=== PATIENT | male | born 1990 | race Caucasian/White ===

== ENCOUNTER 2016-06-12 07:22 | Inpatient (IN) | payer OTHER ==
[2016-06-12] VITALS (16 sets, daily range): BP systolic 118–166; BP diastolic 54–99; PULSE 68–130; RESP 11–42; TEMP 98–99.3; O2SAT 95–100
[~2016-06-12] VITALS: Ht 185.4 cm; Wt 100.1 kg
[2016-06-12] MEDS ORDERED: methylPREDNISolone SOD SUCC 125 MG/2 ML VIAL IVP ONE (07:30)
[2016-06-12] MEDS ORDERED: SODIUM CHLORIDE 0.9% FLUSH 5 ML FLUSH IVF PRN ×2 (07:30→09:00)
[2016-06-12] MEDS ORDERED: ALBU0.63 NEB (07:32)
[2016-06-12] MEDS ORDERED: VENTAER INH (07:32)
--- NOTE | 2016-06-12 07:33 | PD ---
HPI Chief Complaint: Respiratory Distress Time Seen by Provider: 07:25 Travel History International Travel<30 days: No Contact w/Intl Traveler<30days: No Traveled to known affect area: No History of Present Illness HPI The patient is a 25-year-old male who presents emergency department for shortness of breath. The patient's fianc provides most of the history as the patient is experiencing extreme shortness of breath upon arrival. The patient has a history of asthma with 3 days of increasing shortness of breath and wheezing. The patient has had a dry nonproductive cough, some anterior chest tightness, and wheezing. The patient denies any fever, chills, or sweats. The patient does have a history of significant asthma with one previous intubation and to previous episodes where he was placed on BiPAP. The patient's last hospitalization was approximately 3 months ago in [place]. The patient does smoke socially. The patient's symptoms are moderate, exacerbated by history of asthma, and not alleviated with nebulizers at home. However, the patient's nebulizer machine is not been working at home according to the [facility]. [facility] Past Medical History Narrative Medical Asthma Respiratory: Yes Past Surgical History Surgical History: No Previous Surgery Social History Alcohol Use: No Tobacco Use: Yes (socially) Substance Use: No Allergies-Medications (Allergen,Severity, Reaction): Coded Allergies: No Known Allergies (Unverified , 07/21/15) Reported Meds & Prescriptions Reported Meds & Active Scripts Active Reported Albuterol Neb (Albuterol Sulfate) 0.63 Mg/3 Ml Neb 0.63 Mg NEB Q4HR NEB PRN Ventolin Hfa 18 GM Inh (Albuterol Sulfate) 90 Mcg/Act Aer 2 Puff INH Q4-6H PRN Review of Systems ROS Limitations: Clinical Condition Except as stated in HPI: all other systems reviewed are Neg General / Constitutional: No: Fever, Chills HENT: No: Lightheadedness Cardiovascular: Positive: Chest Pain or Discomfort (tightness) Respiratory: Positive: Cough, Shortness of Breath Gastrointestinal: No: Nausea, Vomiting, Abdominal Pain Musculoskeletal: No: Edema Physical Exam Narrative GENERAL: Awake, alert, 25-year-old male who appears in moderate respiratory distress. SKIN: Warm and dry. HEAD: Atraumatic. Normocephalic. EYES: No injection or drainage. ENT: No nasal bleeding or discharge. Mucous membranes pink and moist. NECK: Trachea midline. No JVD. CARDIOVASCULAR: Regular, tachycardic with a heart rate of 120. RESPIRATORY: Supraclavicular and intercostal retractions. Mild tachypnea. Diminished breath sounds with prolonged expiratory phase. GASTROINTESTINAL: Abdomen soft, non-tender, nondistended. No rebound tenderness. MUSCULOSKELETAL: No obvious deformities. No clubbing. No cyanosis. No edema. NEUROLOGICAL: Awake and alert. No obvious cranial nerve deficits. Motor grossly within normal limits. Normal speech. PSYCHIATRIC: Appropriate mood and affect; insight and judgment normal. Data Data Last Documented VS Vital Signs Date Time Temp Pulse Resp B/P Pulse Ox O2 Delivery O2 Flow Rate FiO2 06/12/16 08:15 99 40 06/12/16 08:15 102 40 132/94 BiPAP 06/12/16 07:34 2.00 06/12/16 07:27 98.2 Orders Basic Metabolic Panel (Bmp) (06/12/16 07:29) Complete Blood Count With Diff (06/12/16 07:29) Chest, Single Ap (06/12/16 07:29) Ecg Monitoring (06/12/16 07:29) Iv Access Insert/Monitor (06/12/16 07:29) Oximetry (06/12/16 07:29) Oxygen Administration (06/12/16 07:29) Methylprednisolone So Succ Inj (Solumedr (06/12/16 07:30) Albuterol-Ipratropium Neb (Duoneb Neb) (06/12/16 07:30) Sodium Chloride 0.9% Flush (Ns Flush) (06/12/16 07:30) Morphine Inj (Morphine Inj) (06/12/16 08:30) Ondansetron Inj (Zofran Inj) (06/12/16 08:30) Sodium Chlor 0.9% 1000 Ml Inj (Ns 1000 M (06/12/16 08:30) Albuterol Neb Continuous Pack (Albuterol (06/12/16 08:30) Arterial Blood Gas (Abg) (06/12/16 ) Albuterol-Ipratropium Neb (Duoneb Neb) (06/12/16 11:00) Albuterol-Ipratropium Neb (Duoneb Neb) (06/12/16 09:00) Methylprednisolone So Succ Inj (Solumedr (06/12/16 12:00) Budesonide Neb (Pulmicort Respule Neb) (06/12/16 09:00) Admit To Inpatient (06/12/16 ) Code Status (06/12/16 08:49) Vital Signs (Adult) JUANA.Q1H (06/12/16 08:49) Activity Bed Rest (06/12/16 08:49) Monotype Keyboard Operator / Telemetry JUANA.Q8H (06/12/16 08:49) Intake + Output JUANA.Q8H (06/12/16 08:49) Diet Npo (06/12/16 Breakfast) Sodium Chlor 0.9% 1000 Ml Inj (Ns 1000 M (06/12/16 08:49) Sodium Chloride 0.9% Flush (Ns Flush) (06/12/16 09:00) Sodium Chloride 0.9% Flush (Ns Flush) (06/12/16 09:00) Morphine Inj (Morphine Inj) (06/12/16 09:00) Chlorhexidine 0.12% Liq (Peridex 0.12% L (06/12/16 20:00) Pantoprazole Inj (Protonix Inj) (06/12/16 09:00) Complete Blood Count With Diff (06/13/16 06:00) Comprehensive Metabolic Panel (06/13/16 06:00) Chest, Single Ap (06/13/16 06:00) Resp Pulse Oximetry (06/12/16 ) Resp Bipap / Cpap Non Invas Vt (06/12/16 ) Consult Cm-Day 5 Ltac Eval (06/12/16 ) Enoxaparin Inj (Lovenox Inj) (06/12/16 09:00) Scd Bilateral/Knee High JUANA.BID (06/12/16 08:49) Leon Bilateral/Knee High JUANA.QSHIFT (06/12/16 08:49) ^ Initiate Protocol (06/12/16 08:49) ^ Instruction (06/12/16 08:49) [facility] Information (06/12/16 09:00) Chlorhexidine 2% Cloth (Chlorhexidine 2% (06/13/16 04:00) Chlorhexidine 2% Cloth (Chlorhexidine 2% (06/12/16 09:00) Mrsa Pcr Surveillance (06/12/16 08:49) Inpatient Certification (06/12/16 ) Admit Order (Ed Use Only) (06/12/16 09:01) Magnesium (Mg) (06/12/16 07:30) Phosphorus (Po4) (06/12/16 07:30) Labs Laboratory Tests Test 06/12/16 06/12/16 07:30 08:40 White Blood Count 7.2 TH/MM3 Red Blood Count 5.36 MIL/MM3 Hemoglobin 16.0 GM/DL Hematocrit 47.5 % Mean Corpuscular Volume 88.6 FL Mean Corpuscular Hemoglobin 30.0 PG Mean Corpuscular Hemoglobin 33.8 % Concent Red Cell Distribution Width 13.2 % Platelet Count 198 TH/MM3 Mean Platelet Volume 10.3 FL Neutrophils (%) (Auto) 49.2 % Lymphocytes (%) (Auto) 31.5 % Monocytes (%) (Auto) 14.9 % Eosinophils (%) (Auto) 4.0 % Basophils (%) (Auto) 0.4 % Neutrophils # (Auto) 3.6 TH/MM3 Lymphocytes # (Auto) 2.3 TH/MM3 Monocytes # (Auto) 1.1 TH/MM3 Eosinophils # (Auto) 0.3 TH/MM3 Basophils # (Auto) 0.0 TH/MM3 CBC Comment DIFF FINAL Differential Comment Sodium Level 140 MEQ/L Potassium Level 4.2 MEQ/L Chloride Level 105 MEQ/L Carbon Dioxide Level 26.6 MEQ/L Anion Gap 8 MEQ/L Blood Urea Nitrogen 10 MG/DL Creatinine 1.19 MG/DL Estimat Glomerular Filtration 76 ML/MIN Rate Random Glucose 87 MG/DL Calcium Level 9.3 MG/DL Phosphorus Level 2.3 MG/DL Magnesium Level 2.1 MG/DL Blood Gas Puncture Site RT RADIAL Blood Gas Patient Temperature 98.6 Blood Gas HCO3 24 mmol/L Blood Gas Base Excess -0.7 mmol/L Blood Gas Oxygen Saturation 96 % Arterial Blood pH 7.39 Arterial Blood Partial 40 mmHg Pressure CO2 Arterial Blood Partial 190 mmHG Pressure O2 Arterial Blood Oxygen Content 20.3 Vol % Arterial Blood 1.8 % Carboxyhemoglobin Arterial Blood Methemoglobin 2.0 % Blood Gas Hemoglobin 14.8 G/DL Oxygen Delivery Device BiPAP Blood Gas Ventilator Setting [id number] Blood Gas Inspired Oxygen 40 % MDM Medical Decision Making Medical Screen Exam Complete: Yes Emergency Medical Condition: Yes Medical Record Reviewed: Yes Interpretation(s) Laboratory Tests Test 06/12/16 07:30 White Blood Count 7.2 TH/MM3 Red Blood Count 5.36 MIL/MM3 Hemoglobin 16.0 GM/DL Hematocrit 47.5 % Mean Corpuscular Volume 88.6 FL Mean Corpuscular Hemoglobin 30.0 PG Mean Corpuscular Hemoglobin 33.8 % Concent Red Cell Distribution Width 13.2 % Platelet Count 198 TH/MM3 Mean Platelet Volume 10.3 FL Neutrophils (%) (Auto) 49.2 % Lymphocytes (%) (Auto) 31.5 % Monocytes (%) (Auto) 14.9 % Eosinophils (%) (Auto) 4.0 % Basophils (%) (Auto) 0.4 % Neutrophils # (Auto) 3.6 TH/MM3 Lymphocytes # (Auto) 2.3 TH/MM3 Monocytes # (Auto) 1.1 TH/MM3 Eosinophils # (Auto) 0.3 TH/MM3 Basophils # (Auto) 0.0 TH/MM3 CBC Comment DIFF FINAL Differential Comment Sodium Level 140 MEQ/L Potassium Level 4.2 MEQ/L Chloride Level 105 MEQ/L Carbon Dioxide Level 26.6 MEQ/L Anion Gap 8 MEQ/L Blood Urea Nitrogen 10 MG/DL Creatinine 1.19 MG/DL Estimat Glomerular Filtration 76 ML/MIN Rate Random Glucose 87 MG/DL Calcium Level 9.3 MG/DL Last Impressions Chest X-Ray 06/12/16 0729 Signed Impressions: Service Date/Time: May 08:01 - CONCLUSION: No acute cardiopulmonary abnormality is identified. Alton Mon MD Differential Diagnosis Differential diagnosis includes status asthmaticus, asthma exacerbation, pneumothorax, cardiomyopathy, pulmonary embolism, flash pulmonary edema, pleural effusion. Narrative Course IV was established, labs were drawn and sent, and the patient was placed on cardiac telemetry monitoring and continuous pulse oximetry monitoring. The patient was administered Solu-Medrol 125 mg intravenously and 3 duo nebs. Chest x-ray was obtained. The patient initially declined BiPAP. The patient was administered 3 duo nebs, however, continue to have significant respiratory distress with visible retractions and tachypnea with a respiratory rate of 40. Therefore, the patient was placed on BiPAP. The patient is high risk as he has been on BiPAP twice in the past with one previous intubation and continues to have significant symptoms after 3 duo nebs. Therefore, the patient will be admitted to the intensive care unit to evaluate improvement or decline in respiratory status on BiPAP. The on-call field laborer was paged at 8:12 AM. I discussed the patient with the field laborer, Dr. Dang, who requests that ABG. Therefore, stat ABG was ordered. Critical Care Narrative Aggregate critical care time was 35 minutes. Time to perform other separately billable procedures was not included in the critical care time. My time did not include minutes spent treating any other patients simultaneously or on activities that did not directly contribute to the patient's treatment. The services I provided to this patient were to treat and/or prevent clinically significant deterioration that could result in: Anoxia, hypoxia, respiratory arrest. I provided critical care services requiring my management, as noted below: Chart data review, documentation time, medication orders and management, vital sign assessments/reviewing monitor data, ordering and reviewing lab tests, ordering and interpreting/reviewing x-rays and diagnostic studies, care of the patient and discussion of the patient with the admitting physicians. Physician Communication Physician Communication The on-call field laborer was paged for admission. I discussed the patient Dr. Dang who agrees with admission. Diagnosis Primary Impression: Status asthmaticus Qualified Code: J45.902 - Asthma with status asthmaticus, unspecified asthma severity Admitting Information Admitting Physician Requests: Admit Condition: Stable Isaiah Stearns MD Jun 12, 2016 07:33
[2016-06-12] MEDS: RESP: ALBUTEROL 2.5 MG/IPRATROPIUM 0.5 MG NEB (SCH) INH ×2 (07:35→07:36)
[2016-06-12 07:49] LABS: AUTOMATED NEUTROPHIL # 3.6 TH/MM3 (1.8-7.7); BASOPHIL % 0.4 % (0.0-2.0); EOSINOPHIL # 0.3 TH/MM3 (0-0.4); HEMATOCRIT 47.5 % (39.0-51.0); HEMO FLAGS DIFF FINAL; LYMPH % 31.5 % (9.0-44.0); LYMPHOCYTE # 2.3 TH/MM3 (1.0-4.8); MEAN CELL VOLUME 88.6 FL (80.0-100.0); MEAN CORPUSCULAR HGB CONC 33.8 % (32.0-36.0); MONO % 14.9 % (0.0-8.0); NEUT % 49.2 % (16.0-70.0); PLATELET COUNT 198 TH/MM3 (150-450); RED BLOOD COUNT 5.36 MIL/MM3 (4.50-5.90); RED CELL DISTRIBUTION WIDTH 13.2 % (11.6-17.2); WHITE BLOOD COUNT 7.2 TH/MM3 (4.0-11.0)
[2016-06-12 08:05] LABS: BICARBONATE 26.6 MEQ/L (21.0-32.0); POTASSIUM 4.2 MEQ/L (3.5-5.1)
--- NOTE | 2016-06-12 08:24 | RADRPT ---
EXAM DATE/TIME: 06/12/2016 08:01 [facility] COMPARISON: No previous studies available for comparison. INDICATIONS : Shortness of breath. MEDICAL HISTORY : Asthma SURGICAL HISTORY : None. ENCOUNTER: Initial ACUITY: 2 days PAIN SCORE: 0/10 LOCATION: Bilateral chest FINDINGS: Portable AP view of the chest demonstrates a normal-sized cardiac silhouette. No effusion, consolidat ion, or pneumothorax is visualized. The bones and soft tissues demonstrate no acute abnormality. Ther e is mild thoracolumbar scoliosis. CONCLUSION: No acute cardiopulmonary abnormality is identified. Alton Mon MD on June 12, 2016 at 8:22 Board Certified Radiologist. This report was verified electronically.
[2016-06-12] MEDS ORDERED: ONDANSETRON HCL 4 MG/2 ML VIAL IV PUSH ONE (08:30)
[2016-06-12] MEDS ORDERED: SODIUM CHLOR 0.9% 1000 ML INJ 1,000 ML IV ONE (08:30)
[2016-06-12] MEDS ORDERED: MORPHINE SULFATE 4 MG/ML INJ IV PUSH ONE (08:30)
[2016-06-12 08:53] LABS: BLOOD GAS BASE EXCESS -0.7 mmol/L (-2-2); BLOOD GAS CARBOXYHEMOGLOBIN 1.8 % (0-4); BLOOD GAS HCO3 24 mmol/L (22-26); BLOOD GAS O2 HGB SATURATION 96 % (90-100); BLOOD GAS OXYGEN CONTENT 20.3 Vol % (12.0-20.0); BLOOD GAS PCO2 40 mmHg (38-42); BLOOD GAS PO2 190 mmHG (61-120); BLOOD GAS TOTAL HGB 14.8 G/DL (12.0-16.0); CRITICAL VALUE NO; OXYGEN DEVICE BiPAP; TEMP CORR TO 98.6
[2016-06-12 08:54] LABS: DRAW SITE RT RADIAL; FIO2 40 %; NUMBER OF ARTERIAL PUNCTURES 1; STAT YES; ULNAR PULSE PRESENT; VENT SETTINGS IPAP10EPAP5
[2016-06-12] MEDS ORDERED: RESP: ALBUTEROL 2.5 MG/IPRATROPIUM 0.5 MG NEB (PRN) NEB (09:00)
[2016-06-12] MEDS ORDERED: CHLORHEXIDINE GLUCONATE 2 % 1 PACK (2 CLOTHS) TOP PRN (09:00)
[2016-06-12] MEDS: ENOXAPARIN SODIUM 40 MG/0.4 ML SYRINGE SQ SCH (09:00)
[2016-06-12] MEDS: SODIUM CHLORIDE 0.9% FLUSH 5 ML FLUSH IVF SCH ×2 (09:00→20:02)
[2016-06-12] MEDS: RESP: BUDESONIDE 0.5 MG/2 ML NEB NEB SCH ×2 (09:00→19:21)
[2016-06-12] MEDS ORDERED: MORPHINE SULFATE 4 MG/ML INJ IV PRN (09:00)
[2016-06-12] MEDS ORDERED: MISCELLANEOUS NURSING INFORMATION XX SCH (09:00)
--- NOTE | 2016-06-12 09:17 | HHI.HP ---
HPI Service Critical Care Medicine Primary Care Physician No Primary Care Physician Admission Diagnosis status asthmaticus Diagnosis: (1) Status asthmaticus Diagnosis: Principal (2) Acute respiratory failure Diagnosis: Principal (3) Poorly controlled persistent asthma Diagnosis: Secondary (4) Noncompliance Diagnosis: Secondary Chief Complaint: Severe shortness of breath Status asthmaticus Travel History International Travel<30 Days: No Contact w/Intl Traveler <30 Da: No Traveled to Known Affected Are: No Sepsis Criteria SIRS Criteria (2 or more): Heart rate over 90, RR > 20 or PaCO2 < 32 Criteria Outcome: Meets SIRS criteria History of Present Illness The patient is a 25-year-old male with poorly controlled asthma who presented to emergency department with for shortness of breath, tachypnea, essentially in status asthmaticus. Patient was unable to give history and patient's fianc provided most of the history. He is having 3 days of increasing shortness of breath and wheezing, with dry nonproductive cough, some anterior chest tightness , and wheezing. He had one previous intubation in [place] when he was 16, had been on BiPAP atleast twice, most recently 6 months ago. He is noncompliant to his inhaled steroids and bronchodilators. Per ER history he does smoke socially but he denied this to me. His nebulizer machine is not been working at home. The patient was administered Solu-Medrol 125 mg intravenously and DuoNebx3. Chest x-ray was negative. Patient continued to have significant respiratory distress with visible accessory muscle use and a respiratory rate of 40 and was placed on BiPAP. ABG showed normal pH PCO2 40 PO2 190. I evaluated the patient in ED. he remains on BiPAP breathing 30-35, but feels that he is slightly improved now. Complaints of pleuritic chest pain of R sternal margin Review of Systems ROS Limitations: Clinical Condition (On BiPAP) Past Family Social History Allergies: Coded Allergies: No Known Allergies (Unverified , 07/21/15) Past Medical History Severe asthma with noncompliance to treatment Past Surgical History Appendectomy testicular torsion Reported Medications Albuterol Neb (Albuterol Sulfate) 0.63 Mg/3 Ml Neb 0.63 Mg NEB Q4HR NEB PRN Ventolin Hfa 18 GM Inh (Albuterol Sulfate) 90 Mcg/Act Aer 2 Puff INH Q4-6H PRN Active Ordered Medications Reviewed Family History Reviewed Social History No alcohol, tobacco or drug use Physical Exam Vital Signs Vital Signs Date Time Temp Pulse Resp B/P Pulse Ox O2 Delivery O2 Flow Rate FiO2 06/12/16 08:15 99 40 06/12/16 08:15 102 40 132/94 97 BiPAP 40 06/12/16 08:11 97 BiPAP 40 06/12/16 07:34 99 Nasal Cannula 2.00 06/12/16 07:31 99 Nasal Cannula 2 06/12/16 07:31 99 Nasal Cannula 2 06/12/16 07:29 42 99 Nasal Cannula 2 06/12/16 07:27 98.2 130 42 166/99 100 Physical Exam GENERAL: 25-year-old male who appears in moderate respiratory distress on BiPAP SKIN: Warm and dry. HEAD: Atraumatic. Normocephalic. EYES: No injection or drainage. ENT: No nasal bleeding or discharge. BiPAP mask limits exam NECK: Trachea midline. No JVD. CARDIOVASCULAR: Regular, tachycardic with a heart rate of 110. No murmurs RESPIRATORY: Some Intercostal retractions. Tachypnea. Diminished breath sounds with prolonged expiratory wheezing. On BiPAP GASTROINTESTINAL: Abdomen soft, non-tender, nondistended. No rebound tenderness. MUSCULOSKELETAL: No obvious deformities. No clubbing. No cyanosis. No edema. NEUROLOGICAL: Awake and alert. Motor grossly within normal limits. Laboratory Laboratory Tests Test 06/12/16 06/12/16 07:30 08:40 White Blood Count 7.2 Red Blood Count 5.36 Hemoglobin 16.0 Hematocrit 47.5 Mean Corpuscular Volume 88.6 Mean Corpuscular Hemoglobin 30.0 Mean Corpuscular Hemoglobin 33.8 Concent Red Cell Distribution Width 13.2 Platelet Count 198 Mean Platelet Volume 10.3 Neutrophils (%) (Auto) 49.2 Lymphocytes (%) (Auto) 31.5 Monocytes (%) (Auto) 14.9 Eosinophils (%) (Auto) 4.0 Basophils (%) (Auto) 0.4 Neutrophils # (Auto) 3.6 Lymphocytes # (Auto) 2.3 Monocytes # (Auto) 1.1 Eosinophils # (Auto) 0.3 Basophils # (Auto) 0.0 CBC Comment DIFF FINAL Differential Comment Sodium Level 140 Potassium Level 4.2 Chloride Level 105 Carbon Dioxide Level 26.6 Anion Gap 8 Blood Urea Nitrogen 10 Creatinine 1.19 Estimat Glomerular Filtration 76 Rate Random Glucose 87 Calcium Level 9.3 Blood Gas Puncture Site RT RADIAL Blood Gas Patient Temperature 98.6 Blood Gas HCO3 24 Blood Gas Base Excess -0.7 Blood Gas Oxygen Saturation 96 Arterial Blood pH 7.39 Arterial Blood Partial 40 Pressure CO2 Arterial Blood Partial 190 Pressure O2 Arterial Blood Oxygen Content 20.3 Arterial Blood 1.8 Carboxyhemoglobin Arterial Blood Methemoglobin 2.0 Blood Gas Hemoglobin 14.8 Oxygen Delivery Device BiPAP Blood Gas Ventilator Setting [id number] Blood Gas Inspired Oxygen 40 Result Diagram: 06/12/16 0730 06/12/16 0730 Imaging CXR No acute disease Assessment and Plan Problem List: (1) Acute respiratory failure ICD Code: J96.00 Status: Acute (2) Status asthmaticus ICD Code: J45.902 Status: Acute (3) Poorly controlled persistent asthma ICD Code: J45.998 Status: Acute (4) Noncompliance ICD Code: Z91.19 Status: Acute Assessment and Plan NEURO: -As needed Morphine for pain, anxiety. Otherwise minimize sedation RESP: -Continue BiPAP /5 -IV Solu-Medrol 125 mg 1 given and 60 every 6 hours -DuoNeb 3 [id number], DuoNeb scheduled every 3 hours and every 2 hours when necessary -Place on Pulmicort twice a day -Consult pulmonology discussed with Dr. zhou -Empiric azithromycin CV: -Normal saline IV [id number] ml per hour GI: -Nothing by mouth, IV Protonix : -Monitor renal function closely. ID: -Chest x-ray did not show any infiltrates, check for influenza A and B. -Empiric azithromycin for 5 days HEME: -Monitor CBC, CMP ENDO: -Electrolyte replacement per protocol, sliding scale insulin if needed PROPH: -Bilateral lower extremity SCDs. Lovenox 40 mg subcutaneous daily, IV Protonix 40 mg daily LINES: -Utilize peripheral IVs, central line if needed CC time 35 min Problem Qualifiers (1) Status asthmaticus: Qualified Code: J45.902 - Asthma with status asthmaticus, unspecified asthma severity Clarke Dang MD Jun 12, 2016 09:17
[2016-06-12] MEDS: RESP: ALBUTEROL 2.5MG/0.5ML CONTINUOUS NEB 12-PACK NEB SCH ×2 (09:24→14:30)
[2016-06-12] MEDS ORDERED: MAGNESIUM OXIDE 400 MG TAB PO PRN (09:30)
[2016-06-12] MEDS ORDERED: POTASSIUM PHOSPHATE MONOBASIC 500 MG TAB PO PRN (09:30)
[2016-06-12] MEDS ORDERED: POTASSIUM PHOSPHATE INJ 30 MMOL in SODIUM CHLOR 0.9% 250 ML INJ 250 ML IV PRN (09:30)
[2016-06-12] MEDS ORDERED: POTASSIUM CL 40 MEQ/30 ML LIQ UDC PO/TUBE PRN ×2 (09:30)
[2016-06-12] MEDS ORDERED: POTASSIUM PHOSPHATE MONOBASIC 500 MG TAB PO/TUBE PRN (09:30)
[2016-06-12] MEDS ORDERED: MAGNESIUM SULFATE INJ 2 GM in SODIUM CHLORIDE 0.9% INJ 96 ML IV PRN (09:30)
[2016-06-12] MEDS ORDERED: SODIUM PHOSPHATE INJ 30 MMOL in SODIUM CHLOR 0.9% 250 ML INJ 240 ML IV PRN (09:30)
[2016-06-12] MEDS ORDERED: POTASSIUM CHLOR 20 MEQ PREMIX 100 ML IV PRN ×2 (09:30)
[2016-06-12] MEDS ORDERED: POTASSIUM CHLOR 40 MEQ PREMIX 100 ML IV PRN ×2 (09:30)
[2016-06-12] MEDS ORDERED: MAGNESIUM SULFATE INJ 4 GM in SODIUM CHLORIDE 0.9% INJ 92 ML IV PRN (09:30)
[2016-06-12 09:41] LABS: MAGNESIUM 2.1 MG/DL (1.5-2.5)
[2016-06-12] MEDS: SODIUM CHLOR 0.9% 1000 ML INJ 1,000 ML IV SCH ×2 (09:58→20:03)
[2016-06-12] MEDS: PANTOPRAZOLE SODIUM 40 MG VIAL IV SCH (09:58)
[2016-06-12] MEDS: RESP: ALBUTEROL 2.5 MG/IPRATROPIUM 0.5 MG NEB (SCH) NEB ×5 (11:00→23:05)
[2016-06-12] MEDS: AZITHROMYCIN INJ 500 MG in SODIUM CHLOR 0.9% 250 ML INJ 250 ML IV SCH (11:37)
[2016-06-12] MEDS: methylPREDNISolone SOD SUCC 125 MG/2 ML VIAL IV PUSH SCH ×3 (11:38→23:37)
[2016-06-12] MEDS ORDERED: MORPHINE SULFATE 4 MG/ML INJ IV ONE (12:00)
[2016-06-12] MEDS ORDERED: HYDROmorphone HCL PF 1 MG/ML VIAL IV PUSH ONE (12:45)
[2016-06-12] MEDS ORDERED: HYDROmorphone HCL PF 1 MG/ML VIAL IV PUSH PRN ×2 (14:15)
[2016-06-12] MEDS: ONDANSETRON HCL 4 MG/2 ML VIAL IV PUSH PRN ×2 (15:52→23:38)
[2016-06-12] MEDS: HYDROmorphone HCL PF 1 MG/ML VIAL IV PUSH PRN ×2 (18:38→23:38)
[2016-06-12] MEDS: CHLORHEXIDINE 0.12% (ORAL KIT) 15 ML CUP MT SCH (19:56)
[2016-06-13] VITALS (22 sets, daily range): BP systolic 97–133; BP diastolic 46–63; PULSE 69–126; RESP 16–28; TEMP 97.6–98.2; O2SAT 95–98
[2016-06-13] MEDS: RESP: ALBUTEROL 2.5 MG/IPRATROPIUM 0.5 MG NEB (SCH) NEB ×5 (03:49→19:38)
[2016-06-13] MEDS: CHLORHEXIDINE GLUCONATE 2 % 1 PACK (2 CLOTHS) TOP SCH (03:52)
[2016-06-13] MEDS: HYDROmorphone HCL PF 1 MG/ML VIAL IV PUSH PRN (04:12)
--- NOTE | 2016-06-13 04:51 | RADRPT ---
EXAM DATE/TIME: 06/13/2016 03:54 [facility] COMPARISON: CHEST SINGLE AP, June 12, 2016, 8:01. INDICATIONS : Evaluate for respiratory disease. MEDICAL HISTORY : Asthma. SURGICAL HISTORY : None. ENCOUNTER: Subsequent ACUITY: 2 days PAIN SCORE: 0/10 LOCATION: chest FINDINGS: A single view of the chest demonstrates the lungs to be symmetrically aerated without evidence of mas s, infiltrate or effusion. The cardiomediastinal contours are unremarkable. Osseous structures are intact. CONCLUSION: No acute disease. Librado Champion MD on June 13, 2016 at 4:49 Board Certified Radiologist. This report was verified electronically.
[2016-06-13] MEDS: methylPREDNISolone SOD SUCC 125 MG/2 ML VIAL IV PUSH SCH ×3 (04:58→20:26)
[2016-06-13 06:50] LABS: AUTOMATED NEUTROPHIL # 6.9 TH/MM3 (1.8-7.7); BASOPHIL % 0.1 % (0.0-2.0); HEMATOCRIT 39.3 % (39.0-51.0); HEMO FLAGS DIFF FINAL; LYMPH % 10.2 % (9.0-44.0); LYMPHOCYTE # 0.8 TH/MM3 (1.0-4.8); MEAN CELL VOLUME 88.3 FL (80.0-100.0); MEAN CORPUSCULAR HEMOGLOBIN 30.3 PG (27.0-34.0); MEAN CORPUSCULAR HGB CONC 34.4 % (32.0-36.0); MONO % 4.8 % (0.0-8.0); NEUT % 84.9 % (16.0-70.0); PLATELET COUNT 168 TH/MM3 (150-450); RED BLOOD COUNT 4.45 MIL/MM3 (4.50-5.90); RED CELL DISTRIBUTION WIDTH 12.8 % (11.6-17.2); WHITE BLOOD COUNT 8.1 TH/MM3 (4.0-11.0)
[2016-06-13 07:20] LABS: ALKALINE PHOSPHATASE 57 U/L (45-117); ALT (GPT) 17 U/L (12-78); ANION GAP 7 MEQ/L (5-15); AST (GOT) 4 U/L (15-37); BICARBONATE 25.5 MEQ/L (21.0-32.0); BLOOD UREA NITROGEN 10 MG/DL (7-18); CHLORIDE 110 MEQ/L (98-107); GLOMERULAR FILTRATION RATE 103 ML/MIN (>89); POTASSIUM 4.2 MEQ/L (3.5-5.1); SODIUM (NA) 142 MEQ/L (136-145); TOTAL BILIRUBIN ADULT 0.5 MG/DL (0.2-1.0)
[2016-06-13] MEDS: RESP: BUDESONIDE 0.5 MG/2 ML NEB NEB SCH (07:58)
--- NOTE | 2016-06-13 07:58 | HHI.CCPN ---
Subjective Remarks/Hospital Course The patient is a 25-year-old male with poorly controlled asthma who presented to emergency department with for shortness of breath, tachypnea, essentially in status asthmaticus. Patient was unable to give history and patient's fianc provided most of the history. He is having 3 days of increasing shortness of breath and wheezing, with dry nonproductive cough, some anterior chest tightness , and wheezing. He had one previous intubation in [place] when he was 16, had been on BiPAP atleast twice, most recently 6 months ago. He is noncompliant to his inhaled steroids and bronchodilators. Per ER history he does smoke socially but he denied this to me. His nebulizer machine is not been working at home. The patient was administered Solu-Medrol 125 mg intravenously and DuoNebx3. Chest x-ray was negative. Patient continued to have significant respiratory distress with visible accessory muscle use and a respiratory rate of 40 and was placed on BiPAP. ABG showed normal pH PCO2 40 PO2 190. I evaluated the patient in ED. he remains on BiPAP breathing 30-35, but feels that he is slightly improved now. Complaints of pleuritic chest pain of R sternal margin 06/13 Patient is lying in bed in NAD. Feeling overall better. Afebrile. Objective Vital Signs Date Time Temp Pulse Resp B/P Pulse Ox O2 Delivery O2 Flow Rate FiO2 06/13/16 07:00 83 06/13/16 04:00 98.1 17 100/52 98 06/12/16 19:20 21 06/12/16 11:02 BiPAP 06/12/16 07:34 2.00 Intake and Output 06/12/16 06/12/16 06/13/16 08:00 16:00 00:00 Intake Total 490 ml 673 ml Balance 490 ml 673 ml Result Diagram: 06/13/16 0608 06/13/16 0608 Other Results Laboratory Tests Test 06/12/16 06/12/16 06/13/16 08:40 11:24 06:08 Blood Gas Puncture Site RT RADIAL Blood Gas Patient Temperature 98.6 Blood Gas HCO3 24 mmol/L Blood Gas Base Excess -0.7 mmol/L Blood Gas Oxygen Saturation 96 % Arterial Blood pH 7.39 Arterial Blood Partial 40 mmHg Pressure CO2 Arterial Blood Partial 190 mmHG Pressure O2 Arterial Blood Oxygen Content 20.3 Vol % Arterial Blood 1.8 % Carboxyhemoglobin Arterial Blood Methemoglobin 2.0 % Blood Gas Hemoglobin 14.8 G/DL Oxygen Delivery Device BiPAP Blood Gas Ventilator Setting [id number] Blood Gas Inspired Oxygen 40 % Nasal Screen MRSA (PCR) NEGATIVE White Blood Count 8.1 TH/MM3 Red Blood Count 4.45 MIL/MM3 Hemoglobin 13.5 GM/DL Hematocrit 39.3 % Mean Corpuscular Volume 88.3 FL Mean Corpuscular Hemoglobin 30.3 PG Mean Corpuscular Hemoglobin 34.4 % Concent Red Cell Distribution Width 12.8 % Platelet Count 168 TH/MM3 Mean Platelet Volume 10.2 FL Neutrophils (%) (Auto) 84.9 % Lymphocytes (%) (Auto) 10.2 % Monocytes (%) (Auto) 4.8 % Eosinophils (%) (Auto) 0.0 % Basophils (%) (Auto) 0.1 % Neutrophils # (Auto) 6.9 TH/MM3 Lymphocytes # (Auto) 0.8 TH/MM3 Monocytes # (Auto) 0.4 TH/MM3 Eosinophils # (Auto) 0.0 TH/MM3 Basophils # (Auto) 0.0 TH/MM3 CBC Comment DIFF FINAL Differential Comment Sodium Level 142 MEQ/L Potassium Level 4.2 MEQ/L Chloride Level 110 MEQ/L Carbon Dioxide Level 25.5 MEQ/L Anion Gap 7 MEQ/L Blood Urea Nitrogen 10 MG/DL Creatinine 0.91 MG/DL Estimat Glomerular Filtration 103 ML/MIN Rate Random Glucose 125 MG/DL Calcium Level 9.0 MG/DL Total Bilirubin 0.5 MG/DL Aspartate Amino Transf 4 U/L (AST/SGOT) Alanine Aminotransferase 17 U/L (ALT/SGPT) Alkaline Phosphatase 57 U/L Total Protein 7.1 GM/DL Albumin 3.9 GM/DL Imaging Last Impressions Chest X-Ray 06/13/16 0600 Signed Impressions: Service Date/Time: Monday, June 13, 2016 03:54 - CONCLUSION: No acute disease. Librado Champion MD Objective Remarks GENERAL: 25-year-old male off BIPAP lying in bed in NAD. SKIN: Warm and dry. HEAD: Atraumatic. Normocephalic. EYES: No injection or drainage. ENT: No nasal bleeding or discharge. BiPAP mask limits exam NECK: Trachea midline. No JVD. CARDIOVASCULAR:RRR, nl S1, S@ RESPIRATORY: B/L equal air entry, GASTROINTESTINAL: Abdomen soft, non-tender, nondistended. No rebound tenderness. MUSCULOSKELETAL: No obvious deformities. No clubbing. No cyanosis. No edema. NEUROLOGICAL: Awake and alert. Motor grossly within normal limits. A/P Problem List: (1) Acute respiratory failure ICD Code: J96.00 Status: Acute (2) Status asthmaticus ICD Code: J45.902 Status: Acute (3) Poorly controlled persistent asthma ICD Code: J45.998 Status: Acute (4) Noncompliance ICD Code: Z91.19 Status: Acute Assessment and Plan NEURO: -As needed Morphine for pain, anxiety. Otherwise minimize sedation RESP: -Continue with oxygen keep sat >92% -CXR today -no acute disease -IV Solu-Medrol 60mg Q 6 hours -Bronchodilators -Pulmicort twice a day -Pulmonary is following- Dr. zhou -Empiric Azithromycin CV: -Monitor HR and BP keep MAP>65mmHg GI: -start PO regular diet, on IV Protonix : -Monitor renal function, electrolytes replacement as needed. d/c IVF ID: -Monitor for signs of infections ( Fever, WBC) -Empiric azithromycin for 5 days HEME: -Monitor CBC, CMP ENDO: -Electrolyte replacement per protocol, sliding scale insulin if needed PROPH: -Bilateral lower extremity SCDs. Lovenox 40 mg subcutaneous daily, IV Protonix 40 mg daily LINES: -Utilize peripheral IVs, Will sign off and transfer care to [facility] Level 3 Problem Qualifiers (1) Status asthmaticus: Qualified Code: J45.902 - Asthma with status asthmaticus, unspecified asthma severity Taryn Minor MD Jun 13, 2016 07:58
[2016-06-13] MEDS: CHLORHEXIDINE 0.12% (ORAL KIT) 15 ML CUP MT SCH ×2 (08:00→19:54)
--- NOTE | 2016-06-13 08:01 | MB ---
cc: Dayana GUZMAN DATE OF CONSULTATION: 06/12/2016 HISTORY OF PRESENT ILLNESS Mr. Mueller is a 25-year-old black male with a history of asthma hospitalized in acute respiratory stress earlier today on BiPAP most of the day, but now on face mask and continuous aerosol all day. He says he is feeling much better, breathing easier. It came on over several days. He has been noncompliant with therapy and admits to that. He understands that good maintenance therapy going forward is critical because he has been on BiPAP and hospitalized before. The last time was about this time last year when he lived in [place]. He recently relocated here for work with [employer] [facility] [employer]. The patient had one episode of respiratory failure and was intubated 10 years ago. He has had asthma all of his life. He had minimal congestion. No fever. Chest x-ray on presentation with no infiltrates and white count normal at 7200. Arterial blood gas on BiPAP earlier today PO2 190 with a pH 7.4, PCO2 40. PAST MEDICAL HISTORY Unremarkable medical history other than the asthma. He has had an appendectomy and a testicular torsion, but no prior cardiovascular history, no history of recurrent pneumonia or sinus disease. No significant allergies. SOCIAL HISTORY , living with his . Just moved from [place] this year for employment. Does not smoke. No illicit drug use. No excessive alcohol use. FAMILY HISTORY Positive for asthma. He has no children. MEDICATIONS Reviewed in the EMR. PHYSICAL EXAMINATION GENERAL: A well-developed white male, comfortable at rest. VITAL SIGNS: Afebrile, respirations 18, sat currently 100%, pulse 128. HEENT: Sclera anicteric. Mucous membranes are moist. NECK: Neck veins are not distended. No adenopathy in the neck or supraclavicular region. CHEST: Good air movement both lungs. Mild to moderate wheezing. Prolonged expiration. No congestion or rhonchi. HEART: Regular rhythm. No harsh murmur. ABDOMEN: Soft. EXTREMITIES: No peripheral edema or calf tenderness. No clubbing. LABORATORY White count 7200, hemoglobin 16. BUN 10, creatinine 1.1. Nasal MRSA screen negative. DISCUSSION Mr. Mueller presents with an acute exacerbation of asthma. He admits to noncompliance with inhaled therapies that have been prescribed. Will discontinue the continuous aerosol now, put him on q.4h., q.2h. p.r.n., continue IV corticosteroids and monitor peak flows beginning tomorrow. Wean his oxygen as able. Further diagnostic and/or therapeutic intervention will depend on his ongoing clinical course and response to therapy. R. MD SARAH Ferguson/VANCE /6:51 PM /7:53 AM
[2016-06-13] MEDS: PANTOPRAZOLE SODIUM 40 MG VIAL IV SCH (08:45)
[2016-06-13] MEDS: SODIUM CHLORIDE 0.9% FLUSH 5 ML FLUSH IVF SCH ×2 (08:45→20:26)
[2016-06-13] MEDS ORDERED: MORPHINE SULFATE 4 MG/ML INJ IV PUSH ONE (08:45)
[2016-06-13] MEDS: ENOXAPARIN SODIUM 40 MG/0.4 ML SYRINGE SQ SCH (08:45)
[2016-06-13] MEDS ORDERED: INFLUENZA VIRUS VACCINE (QUADRIVALENT) 0.5 ML SYR IM ONE (10:00)
[2016-06-13] MEDS ORDERED: MAGNESIUM HYDROXIDE SUSP 30 ML CUP PO PRN (13:00)
[2016-06-13] MEDS ORDERED: DOCUSATE SODIUM 50 MG/SENNA 8.6 MG TAB PO PRN (13:00)
[2016-06-13] MEDS ORDERED: ACETAMINOPHEN 325 MG TAB PO PRN (13:00)
[2016-06-13] MEDS ORDERED: ALUMINUM/MAGNESIUM/SIMETH 30 ML CUP PO PRN (13:00)
[2016-06-13] MEDS ORDERED: CALCIUM CARBONATE 500 MG CHEWABLE TAB CHEW PRN (13:00)
[2016-06-13] MEDS ORDERED: DOCUSATE SODIUM 100 MG CAP PO PRN (13:00)
[2016-06-13] MEDS: AZITHROMYCIN INJ 500 MG in SODIUM CHLOR 0.9% 250 ML INJ 250 ML IV SCH (13:16)
[2016-06-13] MEDS: BUDESONIDE-FORMOTEROL 160/4.5 MCG INHALER INH SCH (20:25)
[2016-06-14] VITALS: BP 108/59; PULSE 83; RESP 14; TEMP 98.1; O2SAT 97
[2016-06-14 01:00] VITALS: PULSE 82
[2016-06-14 03:00] VITALS: PULSE 71
[2016-06-14 04:00] VITALS: BP 98/51; PULSE 86; RESP 18; TEMP 98.2; O2SAT 96
[2016-06-14] MEDS: CHLORHEXIDINE GLUCONATE 2 % 1 PACK (2 CLOTHS) TOP SCH (04:00)
[2016-06-14 05:00] VITALS: PULSE 64
[2016-06-14] MEDS: RESP: ALBUTEROL 2.5 MG/IPRATROPIUM 0.5 MG NEB (SCH) NEB (07:37)
[2016-06-14 07:38] VITALS: O2SAT 97
[2016-06-14] MEDS: CHLORHEXIDINE 0.12% (ORAL KIT) 15 ML CUP MT SCH (08:00)
[2016-06-14] MEDS: BUDESONIDE-FORMOTEROL 160/4.5 MCG INHALER INH SCH (08:18)
[2016-06-14] MEDS ORDERED: AZITHROMYCIN 250 MG TAB PO SCH (09:00)
[2016-06-14] MEDS ORDERED: PANTOPRAZOLE SOD 40 MG DELAYED RELEASE TAB PO SCH (09:00)
[2016-06-14] MEDS: methylPREDNISolone SOD SUCC 125 MG/2 ML VIAL IV PUSH SCH (09:00)
[2016-06-14] MEDS: SODIUM CHLORIDE 0.9% FLUSH 5 ML FLUSH IVF SCH (09:00)
[2016-06-14] MEDS: ENOXAPARIN SODIUM 40 MG/0.4 ML SYRINGE SQ SCH (09:00)
[2016-06-14 09:59] LABS: AUTOMATED NEUTROPHIL # 14.3 TH/MM3 (1.8-7.7); BASOPHIL % 0.1 % (0.0-2.0); HEMATOCRIT 42.8 % (39.0-51.0); HEMO FLAGS DIFF FINAL; LYMPH % 7.4 % (9.0-44.0); LYMPHOCYTE # 1.2 TH/MM3 (1.0-4.8); MEAN CELL VOLUME 88.4 FL (80.0-100.0); MEAN CORPUSCULAR HEMOGLOBIN 29.8 PG (27.0-34.0); MEAN CORPUSCULAR HGB CONC 33.7 % (32.0-36.0); NEUT % 86.5 % (16.0-70.0); PLATELET COUNT 194 TH/MM3 (150-450); RED BLOOD COUNT 4.84 MIL/MM3 (4.50-5.90); WHITE BLOOD COUNT 16.5 TH/MM3 (4.0-11.0)
[2016-06-14 10:18] LABS: BICARBONATE 27.6 MEQ/L (21.0-32.0); POTASSIUM 3.9 MEQ/L (3.5-5.1)
--- NOTE | 2016-06-14 10:39 | HHI.PR ---
Subjective Remarks Follow-up asthma. Consulted by critical care medicine for transfer of care and medical management. He is doing okay no more wheezing ambulating in the hallway without shortness of breath. He wants to go home. He has been refusing medications. Patient counseled regarding compliance. Also aware of leukocytosis and hyperglycemia secondary to steroids. Patient will follow-up with pulmonary outpatient. Objective Vitals Vital Signs Date Time Temp Pulse Resp B/P Pulse Ox O2 Delivery O2 Flow Rate FiO2 06/14/16 07:38 97 21 06/14/16 05:00 64 06/14/16 04:00 98.2 86 18 98/51 96 06/14/16 03:00 71 06/14/16 01:00 82 06/14/16 00:00 98.1 83 14 108/59 97 06/13/16 23:00 69 06/13/16 21:00 100 06/13/16 20:00 98.2 108 18 104/47 95 06/13/16 19:43 97 21 06/13/16 19:00 102 06/13/16 18:00 111 06/13/16 17:00 126 06/13/16 16:00 105 06/13/16 16:00 98.1 105 18 123/63 98 06/13/16 15:00 85 06/13/16 14:00 115 06/13/16 14:00 98.1 115 18 110/49 98 06/13/16 13:00 95 06/13/16 12:00 86 06/13/16 11:00 90 I/O 06/13/16 06/13/16 06/13/16 06/14/16 06/14/16 06/14/16 07:00 15:00 23:00 07:00 15:00 23:00 Intake Total 387 ml 300 ml 480 ml Output Total 1200 ml 300 ml 625 ml Balance 387 ml -900 ml 180 ml -625 ml Intake Oral 480 ml IV Total 387 ml 300 ml Output Urine Total 1200 ml 300 ml 625 ml # Voids 2 2 2 # Bowel Movements 0 Result Diagram: 06/14/1633 06/14/16 0933 Imaging Last Impressions Chest X-Ray 06/13/16 0600 Signed Impressions: Service Date/Time: Monday, June 13, 2016 03:54 - CONCLUSION: No acute disease. Librado Champion MD Objective Remarks GENERAL: This is a well-nourished, well-developed patient, in no apparent distress. CARDIOVASCULAR: Regular rate and rhythm without murmurs, gallops, or rubs. RESPIRATORY: Clear to auscultation. Breath sounds equal bilaterally. No wheezes , rales, or rhonchi. GASTROINTESTINAL: Abdomen soft, non-tender, nondistended. Normal active bowel sounds MUSCULOSKELETAL: Extremities without clubbing, cyanosis, or edema. NEURO: Alert & Oriented x4 to person, place, time, situation. Moves all ext x4 Procedures none A/P Problem List: (1) Status asthmaticus ICD Code: J45.902 Status: Acute (2) Acute respiratory failure ICD Code: J96.00 Status: Resolved (3) Poorly controlled persistent asthma ICD Code: J45.998 Status: Acute (4) Noncompliance ICD Code: Z91.19 Status: Acute Assessment and Plan Acute respiratory failure secondary to status asthmaticus. Resolved Asthma exacerbation secondary to change in weather and noncompliance. Improved. Recent counseled. Continue nebulizations, Symbicort, Z-Josh and switched to by mouth steroids Leukocytosis secondary to steroids. Hyperglycemia secondary to glucose intolerance. Outpatient follow-up Low risk for DVT Discharge Planning Stable for discharge Problem Qualifiers (1) Status asthmaticus: Qualified Code: J45.902 - Asthma with status asthmaticus, unspecified asthma severity Dick Paulino MD Jun 14, 2016 10:39
[2016-06-14] MEDS ORDERED: ZITH250T PO (10:46)
[2016-06-14] MEDS ORDERED: SYMB160A INH (10:46)
[2016-06-14] MEDS ORDERED: VENTAER INH (10:46)
[2016-06-14] MEDS ORDERED: PANT40TA3 PO (10:46)
[2016-06-14] MEDS ORDERED: PRED20 PO (10:46)
--- NOTE | 2016-06-14 10:47 | HHI.DCPOC ---
Discharge Care Plan Diagnosis: (1) Status asthmaticus (2) Noncompliance (3) Poorly controlled persistent asthma (4) Acute respiratory failure Your Health Problems Are: Difficulty with ADL Exercise Tolerance Shortness of Breath Goals to Promote Your Health * To prevent worsening of your condition and complications * To maintain your health at the optimal level Directions to Meet Your Goals Take your medications as prescribed Follow your dietary instruction Follow activity as directed Keep your appointments as scheduled Take your immunizations and boosters as scheduled If your symptoms worsen call your PCP, if no PCP go to Urgent Care Center or Emergency Room Smoking is Dangerous to Your Health. Avoid second hand smoke Call the 24-hour hour crisis hotline for domestic abuse at Dick Paulino MD Jun 14, 2016 10:46
--- NOTE | 2016-06-14 10:49 | HHI.DS ---
Discharge Summary Admission Date Jun 12, 2016 at 09:04 Discharge Date: Jun 14, 2016 Admitting Diagnosis status asthmaticus (1) Status asthmaticus ICD Code: J45.902 Diagnosis: Principal (2) Acute respiratory failure ICD Code: J96.00 Diagnosis: Principal (3) Poorly controlled persistent asthma ICD Code: J45.998 Diagnosis: Secondary (4) Noncompliance ICD Code: Z91.19 Diagnosis: Secondary Procedures none Brief History - From Admission The patient is a 25-year-old male with poorly controlled asthma who presented to emergency department with for shortness of breath, tachypnea, essentially in status asthmaticus. Patient was unable to give history and patient's fianc provided most of the history. He is having 3 days of increasing shortness of breath and wheezing, with dry nonproductive cough, some anterior chest tightness , and wheezing. He had one previous intubation in [place] when he was 16, had been on BiPAP atleast twice, most recently 6 months ago. He is noncompliant to his inhaled steroids and bronchodilators. Per ER history he does smoke socially but he denied this to me. His nebulizer machine is not been working at home. The patient was administered Solu-Medrol 125 mg intravenously and DuoNebx3. Chest x-ray was negative. Patient continued to have significant respiratory distress with visible accessory muscle use and a respiratory rate of 40 and was placed on BiPAP. ABG showed normal pH PCO2 40 PO2 190. I evaluated the patient in ED. he remains on BiPAP breathing 30-35, but feels that he is slightly improved now. Complaints of pleuritic chest pain of R sternal margin CBC/BMP: 06/14/16 0933 06/14/16 0933 Significant Findings Laboratory Tests Test 06/12/16 06/12/16 06/13/16 06/14/16 07:30 08:40 06:08 09:33 Monocytes (%) (Auto) 14.9 % (0.0-8.0) Monocytes # (Auto) 1.1 TH/MM3 1.0 TH/MM3 (0-0.9) (0-0.9) Estimat Glomerular Filtration 76 ML/MIN (>89) Rate Phosphorus Level 2.3 MG/DL (2.5-4.9) Arterial Blood Partial 190 mmHG Pressure O2 (61-120) Arterial Blood Oxygen Content 20.3 Vol % (12.0-20.0) Red Blood Count 4.45 MIL/MM3 (4.50-5.90) Neutrophils (%) (Auto) 84.9 % 86.5 % (16.0-70.0) (16.0-70.0) Lymphocytes # (Auto) 0.8 TH/MM3 (1.0-4.8) Chloride Level 110 MEQ/L (98-107) Random Glucose 125 MG/DL 142 MG/DL (74-106) (74-106) Aspartate Amino Transf 4 U/L (15-37) (AST/SGOT) White Blood Count 16.5 TH/MM3 (4.0-11.0) Lymphocytes (%) (Auto) 7.4 % (9.0-44.0) Neutrophils # (Auto) 14.3 TH/MM3 (1.8-7.7) Imaging Last Impressions Chest X-Ray 06/13/16 0600 Signed Impressions: Service Date/Time: Monday, June 13, 2016 03:54 - CONCLUSION: No acute disease. Librado Champion MD PE at Discharge GENERAL: This is a well-nourished, well-developed patient, in no apparent distress. CARDIOVASCULAR: Regular rate and rhythm without murmurs, gallops, or rubs. RESPIRATORY: Clear to auscultation. Breath sounds equal bilaterally. No wheezes , rales, or rhonchi. GASTROINTESTINAL: Abdomen soft, non-tender, nondistended. Normal active bowel sounds MUSCULOSKELETAL: Extremities without clubbing, cyanosis, or edema. NEURO: Alert & Oriented x4 to person, place, time, situation. Moves all ext x4 Hospital Course Acute respiratory failure secondary to status asthmaticus. Resolved Asthma exacerbation secondary to change in weather and noncompliance. Improved. Recent counseled. Continue nebulizations, Symbicort, Z-Josh and switched to by mouth steroids Leukocytosis secondary to steroids. Hyperglycemia secondary to glucose intolerance. Outpatient follow-up Low risk for DVT Pt Condition on Discharge: Stable Discharge Disposition: Discharge Home Discharge Time: <= 30 minutes Discharge Instructions DIET: Follow Instructions for: As Tolerated, No Restrictions Activities you can perform: Regular-No Restrictions Activities to Avoid: Driving Follow up Referrals: PCP Follow-up - 1 Week Pulmonology - 1 Week New Medications: Azithromycin (Zithromax) 250 Mg Tab 500 MG PO DAILY Infection #2 TAB Budesonide-Formoterol Inh (Symbicort Inh) 160-4.5 Mcg/Act Aero 2 PUFF INH Q12HR Breathing Treatment #1 INHALER Pantoprazole (Pantoprazole) 40 Mg Tab 40 MG PO DAILY Manage Heartburn #10 TAB Prednisone (Prednisone) 20 Mg Tab 40 MG PO DAILY Control Inflammation #8 TAB Continued Medications: Albuterol 18 GM Inh (Ventolin Hfa 18 GM Inh) 90 Mcg/Act Aer 2 PUFF INH Q4-6H PRN SHORTNESS OF BREATH #1 Ref 0 INHALER (This prescription has been renewed) Albuterol Neb (Albuterol Neb) 0.63 Mg/3 Ml Neb 0.63 MG NEB Q4HR NEB PRN SHORTNESS OF BREATH #25 Ref 0 NEBULE Dick Paulino MD Jun 14, 2016 10:49
[2016-06-14] MEDS ORDERED: predniSONE 20 MG TAB PO SCH (11:00)
== END 2016-06-14 12:10 | disposition home or self-care (01) | DRG 202 ==
LOC: NEPE 07:22 → NEDA 09:04 → HIMN 11:20
PROVIDERS: ADMIT Internal Medicine; ATTEND Internal Medicine
DX: J45.902 Unspecified asthma with status asthmaticus (principal); J96.00 Acute respiratory failure, unspecified whether with hypoxia or hypercapnia; Z91.19 Patient's noncompliance with other medical treatment and regimen; D72.829 Elevated white blood cell count, unspecified; E74.39 Other disorders of intestinal carbohydrate absorption; F17.200 Nicotine dependence, unspecified, uncomplicated
CPT/HCPCS: 36600; 71010; 80048; 80053; 82805; 83735; 84100; 85025; 87641; 90686; 94002; 94640; 94644; 94645; 94664; 94799; 96361; 96374; 96375; C9113; J0456; J1170; J1650; J2270; J2405; J2930; J7030; J7050; J7512; J7611; J7626; Q2038

== ENCOUNTER 2016-10-10 06:59 | Emergency (ER) | payer OTHER ==
[~2016-10-10] VITALS: Ht 188 cm; Wt 90.5 kg
[~2016-10-10 06:59] MED LIST: ALBU0.63 NEB; PANT40TA3 PO; PRED20 PO; SYMB160A INH; VENTAER INH; ZITH250T PO
[2016-10-10 07:03] VITALS: BP 124/90; PULSE 110; RESP 28; O2SAT 99
[2016-10-10 07:12] VITALS: O2SAT 99
[2016-10-10] MEDS ORDERED: RESP: ALBUTEROL 2.5 MG/IPRATROPIUM 0.5 MG NEB (SCH) INH ONE (07:15)
[2016-10-10] MEDS ORDERED: methylPREDNISolone SOD SUCC 125 MG/2 ML VIAL IVP ONE (07:15)
[2016-10-10] MEDS ORDERED: RESP: RACEPINEPHRINE 2.25% 0.5 ML NEB NEB ONE (07:15)
[2016-10-10] MEDS ORDERED: SODIUM CHLORIDE 0.9% FLUSH 10 ML FLUSH IVF PRN (07:15)
--- NOTE | 2016-10-10 07:15 | PD ---
HPI Chief Complaint: Respiratory Distress Time Seen by Provider: 07:08 Travel History International Travel<30 days: No Contact w/Intl Traveler<30days: No Traveled to known affect area: No History of Present Illness HPI This is a 26-year-old male with history of asthma, who presents today with complaints of respiratory distress. The patient and his significant other reports the shortness breath started late last night. As no reported fevers today but significant other states that he felt febrile yesterday. There is no chills. He does have a cough with no production. The patient has severe asthma and has been intubated 10 years ago. He is also been admitted to our ICU and placed on CPAP with his last asthma exacerbation. PFSH Past Medical History Asthma: Yes Anxiety: Yes Cancer: No Cardiovascular Problems: No Endocrine: No Genitourinary: No Immune Disorder: No Musculoskeletal: No Neurologic: No Psychiatric: No Reproductive: No Respiratory: Yes Past Surgical History Abdominal Surgery: Yes (APPENIDX, TORSO TURN) Social History Alcohol Use: Yes (OCC) Tobacco Use: Yes (socially) Substance Use: No Allergies-Medications (Allergen,Severity, Reaction): Coded Allergies: No Known Allergies (Unverified , 10/10/16) Reported Meds & Prescriptions Reported Meds & Active Scripts Active Prednisone 50 Mg Tab 50 Mg PO DAILY Symbicort Inh (Budesonide/Formoterol Fumarate) 160-4.5 Mcg/Act Aero 2 Puff INH Q12HR Ventolin Hfa 18 GM Inh (Albuterol Sulfate) 90 Mcg/Act Aer 2 Puff INH Q4-6H PRN Reported Pepcid Liq (Famotidine) 40 Mg/5 Ml Susp 10 Mg PO DAILY PRN Claritin (Loratadine) 10 Mg Cap 10 Mg PO DAILY PRN Albuterol Neb (Albuterol Sulfate) 0.63 Mg/3 Ml Neb 0.63 Mg NEB Q4HR NEB PRN Review of Systems Except as stated in HPI: all other systems reviewed are Neg General / Constitutional: No: Fever, Chills HENT: No: Headaches, Lightheadedness Cardiovascular: No: Chest Pain or Discomfort, Palpitations, Irregular Rhythm Respiratory: Positive: Cough, Shortness of Breath (nonproductive), Wheezing Gastrointestinal: No: Nausea, Vomiting, Abdominal Pain Genitourinary: No: Frequency, Dysuria Musculoskeletal: No: Weakness, Pain Neurologic: No: Weakness, Dizziness, Headache Psychiatric: No: Anxiety, Substance Abuse Physical Exam Narrative GENERAL: Well-developed well-nourished gentleman in moderate to severe respiratory distress. SKIN: Focused skin assessment warm/dry. HEAD: Atraumatic. Normocephalic. EYES: No scleral icterus. No injection or drainage. ENT: Mucous membranes pink and moist. NECK: Trachea midline. No JVD. CARDIOVASCULAR: Regular rate at 99 and normal rhythm. No murmur appreciated. RESPIRATORY: Positive accessory muscle use. Decreased breath sounds in all 4 lung shepard with minimal wheezing. GASTROINTESTINAL: Abdomen soft, non-tender, nondistended. Hepatic and splenic margins not palpable. MUSCULOSKELETAL: No obvious deformities. No clubbing. No cyanosis. No edema. NEUROLOGICAL: Awake and alert. No obvious cranial nerve deficits. Motor grossly within normal limits. Normal speech. Data Data Last Documented VS Vital Signs Date Time Temp Pulse Resp B/P Pulse Ox O2 Delivery O2 Flow Rate FiO2 10/10/16 07:53 97 21 10/10/16 07:31 12 Room Air 2.0 10/10/16 07:25 88 134/96 Orders Complete Blood Count With Diff (10/10/16 07:08) Basic Metabolic Panel (Bmp) (10/10/16 07:08) Iv Access Insert/Monitor (10/10/16 07:08) Ecg Monitoring (10/10/16 07:08) Oximetry (10/10/16 07:08) Oxygen Administration (10/10/16 07:08) Chest, Single Ap (10/10/16 07:08) Sodium Chloride 0.9% Flush (Ns Flush) (10/10/16 07:15) Methylprednisolone So Succ Inj (Solumedr (10/10/16 07:15) Albuterol-Ipratropium Neb (Duoneb Neb) (10/10/16 07:15) Albuterol Neb (Albuterol Neb) (10/10/16 07:15) Racemic Epinephrine 2.25% Neb (Racepinep (10/10/16 07:15) Group A Rapid Strep Screen (10/10/16 07:38) Strep Culture (Group A) (10/10/16 07:35) Labs Laboratory Tests Test 10/10/16 07:20 White Blood Count 8.5 TH/MM3 Red Blood Count 5.12 MIL/MM3 Hemoglobin 15.6 GM/DL Hematocrit 44.3 % Mean Corpuscular Volume 86.4 FL Mean Corpuscular Hemoglobin 30.4 PG Mean Corpuscular Hemoglobin 35.2 % Concent Red Cell Distribution Width 12.8 % Platelet Count 175 TH/MM3 Mean Platelet Volume 10.9 FL Neutrophils (%) (Auto) 64.8 % Lymphocytes (%) (Auto) 20.9 % Monocytes (%) (Auto) 11.3 % Eosinophils (%) (Auto) 2.5 % Basophils (%) (Auto) 0.5 % Neutrophils # (Auto) 5.5 TH/MM3 Lymphocytes # (Auto) 1.8 TH/MM3 Monocytes # (Auto) 1.0 TH/MM3 Eosinophils # (Auto) 0.2 TH/MM3 Basophils # (Auto) 0.0 TH/MM3 CBC Comment DIFF FINAL Differential Comment Sodium Level 140 MEQ/L Potassium Level 3.8 MEQ/L Chloride Level 108 MEQ/L Carbon Dioxide Level 21.8 MEQ/L Anion Gap 10 MEQ/L Blood Urea Nitrogen 15 MG/DL Creatinine 0.99 MG/DL Estimat Glomerular Filtration 93 ML/MIN Rate Random Glucose 85 MG/DL Calcium Level 9.1 MG/DL MDM Medical Decision Making Medical Screen Exam Complete: Yes Emergency Medical Condition: Yes Differential Diagnosis Asthma exacerbation versus pneumonia versus pulmonary embolus Narrative Course 26-year-old male presents today with complaints of severe asthma exacerbation. The patient states that last time he had this he was admitted to the ICU. The patient denies any fevers, chills. He does have a sore throat and cough. The cough is nonproductive at this time. Rapid strep is negative for group A. He' s been given one racemic epi nebulizer followed by 3 albuterols with the first being with Atrovent. On reexamination at 8:41 AM, he has completely clear lungs. He states he feels much improved. He is also been given Solu-Medrol 125 mg times one dose. He'll be discharged with a prescription for prednisone 50 mg daily 5 days. He is instructed to follow up with his primary care physician. Diagnosis Primary Impression: Acute asthma exacerbation Additional Instructions: Follow up with primary care physician. Warm salt gargles and ibuprofen for sore throat. Med/Other Pt SpecificInfo: Prescription(s) given Scripts Prednisone 50 Mg Tab50 Mg PO DAILY #5 TAB Ref 0 Prov:Hector De Leon MD 10/10/16 Disposition: 01 DISCHARGE HOME Condition: Stable Hector De Leon MD October 10, 2016 07:15
[2016-10-10] MEDS: RESP: ALBUTEROL 2.5 MG/3 ML NEB (SCH) INH ×2 (07:18→07:54)
[2016-10-10 07:25] VITALS: BP 134/96; PULSE 88; RESP 15; O2SAT 99
[2016-10-10] MEDS ORDERED: FAMO40S PO (07:28)
[2016-10-10] MEDS ORDERED: CLAR10CA3 PO (07:28)
[2016-10-10 07:45] LABS: AUTOMATED NEUTROPHIL # 5.5 TH/MM3 (1.8-7.7); BASOPHIL % 0.5 % (0.0-2.0); EOSINOPHIL # 0.2 TH/MM3 (0-0.4); EOSINOPHIL % 2.5 % (0.0-4.0); HEMATOCRIT 44.3 % (39.0-51.0); HEMO FLAGS DIFF FINAL; LYMPH % 20.9 % (9.0-44.0); LYMPHOCYTE # 1.8 TH/MM3 (1.0-4.8); MEAN CELL VOLUME 86.4 FL (80.0-100.0); MEAN CORPUSCULAR HEMOGLOBIN 30.4 PG (27.0-34.0); MEAN CORPUSCULAR HGB CONC 35.2 % (32.0-36.0); MONO % 11.3 % (0.0-8.0); NEUT % 64.8 % (16.0-70.0); PLATELET COUNT 175 TH/MM3 (150-450); RED BLOOD COUNT 5.12 MIL/MM3 (4.50-5.90); RED CELL DISTRIBUTION WIDTH 12.8 % (11.6-17.2); WHITE BLOOD COUNT 8.5 TH/MM3 (4.0-11.0)
[2016-10-10 07:53] VITALS: O2SAT 97; O2SAT 98
[2016-10-10 07:58] LABS: BICARBONATE 21.8 MEQ/L (21.0-32.0); POTASSIUM 3.8 MEQ/L (3.5-5.1)
[2016-10-10 08:00] VITALS: BP 138/69; PULSE 88; RESP 17; O2SAT 98
--- NOTE | 2016-10-10 08:08 | RADRPT ---
EXAM DATE/TIME: 10/10/2016 07:40 [facility] COMPARISON: No previous studies available for comparison. INDICATIONS : Short of breath, fever MEDICAL HISTORY : asthma SURGICAL HISTORY : None. ENCOUNTER: Initial ACUITY: 2 days PAIN SCORE: 0/10 LOCATION: Bilateral chest FINDINGS: A single view of the chest demonstrates the lungs to be symmetrically aerated without evidence of mas s, infiltrate or effusion. The cardiomediastinal contours are unremarkable. Osseous structures are intact. Scoliosis. CONCLUSION: No acute disease. Christo Ward MD on October 10, 2016 at 8:00 Board Certified Radiologist. This report was verified electronically.
[2016-10-10 08:30] VITALS: BP 146/69; PULSE 106; RESP 22; O2SAT 99
[2016-10-10] MEDS ORDERED: PRED50 PO (08:31)
== END 2016-10-10 09:08 | disposition home or self-care (01) ==
LOC: NEPC 06:59
DX: J45.901 Unspecified asthma with (acute) exacerbation (principal)
CPT/HCPCS: 71010; 80048; 85025; 87081; 87880; 94640; 94664; 96374; 99285; J2930; J7613

== ENCOUNTER 2016-10-14 12:16 | Inpatient (IN) | payer OTHER ==
[2016-10-14] VITALS (7 sets, daily range): BP systolic 140–142; BP diastolic 67–88; PULSE 84–91; RESP 16–40; TEMP 97.8–99.5; O2SAT 95–100
[~2016-10-14] VITALS: Ht 188 cm; Wt 93.4 kg
[~2016-10-14 12:16] MED LIST changes: +CLAR10CA3 PO; +FAMO40S PO; -PANT40TA3 PO; -PRED20 PO; +PRED50 PO; -ZITH250T PO
--- NOTE | 2016-10-14 12:22 | PD ---
Physical Exam Date Seen by Provider: October 14, 2016 Time Seen by Provider: 12:20 Narrative 26 yo female that presents to the ED for chest pain and SOB. States very SOB. Taking deep breaths like hiccups in triage. Notiseable work of breathing. History of asthma here last week and was discharged with steroids. Having bad cough. Vitals sign stable with exception of high RR. Patient awaiting bed placement. Data Data Last Documented VS Vital Signs Date Time Temp Pulse Resp B/P Pulse Ox O2 Delivery O2 Flow Rate FiO2 10/14/16 12:19 97.8 84 34 142/88 99 MDM Medical Record Reviewed: Yes Supervised Visit with INÉS: No Juan Jose Osorio October 14, 2016 12:22
--- NOTE | 2016-10-14 12:36 | PD ---
HPI Chief Complaint: Respiratory Symptoms Time Seen by Provider: 12:24 Travel History International Travel<30 days: No Contact w/Intl Traveler<30days: No Traveled to known affect area: No History of Present Illness HPI 26-year-old male with history of asthma presents for evaluation of 5 days of cough, congestion, wheezing, chest pain. He was seen here on the , diagnosed with asthma exacerbation, prescribed five-day course of prednisone 50 mg. He has been using as prescribed, using his albuterol inhaler as needed. Symptoms have been persistent, worsening which prompted reevaluation. He reports generalized wheezing, shortness of breath, dry cough. He has a sharp pain with inspiration. Per chart review review the patient was admitted in May with status asthmaticus. He reports that in the past he was on Singulair, Flovent, ran out of both these medications about one year ago. Has no local primary care physician. No other complaints. PFSH Past Medical History Asthma: Yes Anxiety: Yes Cancer: No Cardiovascular Problems: No Diminished Hearing: No Endocrine: No Genitourinary: No Immune Disorder: No Musculoskeletal: No Neurologic: No Psychiatric: No Reproductive: No Respiratory: Yes Tetanus Vaccination: < 5 Years Past Surgical History Abdominal Surgery: Yes (APPENIDX, TORSO TURN) Other Surgery: Yes (RIGHT TESTICLE SX) Social History Alcohol Use: No Tobacco Use: No Substance Use: No Allergies-Medications (Allergen,Severity, Reaction): Coded Allergies: No Known Allergies (Unverified , 10/14/16) Reported Meds & Prescriptions Reported Meds & Active Scripts Active Prednisone 50 Mg Tab 50 Mg PO DAILY Symbicort Inh (Budesonide/Formoterol Fumarate) 160-4.5 Mcg/Act Aero 2 Puff INH Q12HR Ventolin Hfa 18 GM Inh (Albuterol Sulfate) 90 Mcg/Act Aer 2 Puff INH Q4-6H PRN Reported Pepcid Liq (Famotidine) 40 Mg/5 Ml Susp 10 Mg PO DAILY PRN Claritin (Loratadine) 10 Mg Cap 10 Mg PO DAILY PRN Albuterol Neb (Albuterol Sulfate) 0.63 Mg/3 Ml Neb 0.63 Mg NEB Q4HR NEB PRN Review of Systems Except as stated in HPI: all other systems reviewed are Neg Physical Exam Narrative GENERAL: Well-developed well-nourished male. SKIN: Warm and dry. HEAD: Atraumatic. Normocephalic. EYES: Pupils equal and round. No scleral icterus. No injection or drainage. ENT: No nasal bleeding or discharge. Mucous membranes pink and moist. NECK: Trachea midline. No JVD. CARDIOVASCULAR: Regular rate and rhythm. No murmur appreciated. RESPIRATORY: accessory muscle use, tachypneic with a respiratory rate of 40, prolonged expiratory phase, coarse breath sounds bilaterally. GASTROINTESTINAL: Abdomen soft, non-tender, nondistended. Hepatic and splenic margins not palpable. MUSCULOSKELETAL: No obvious deformities. No edema NEUROLOGICAL: Awake and alert. No obvious cranial nerve deficits. Motor grossly within normal limits. Normal speech. PSYCHIATRIC: Appropriate mood and affect; insight and judgment normal. Data Data Last Documented VS Vital Signs Date Time Temp Pulse Resp B/P Pulse Ox O2 Delivery O2 Flow Rate FiO2 10/14/16 13:00 98 BiPAP 10/14/16 13:00 30 10/14/16 12:28 86 40 2 10/14/16 12:19 97.8 142/88 Orders Arterial Blood Gas (Abg) (10/14/16 12:31) Chest, Single Ap (10/14/16 12:31) Ecg Monitoring (10/14/16 12:31) Iv Access Insert/Monitor (10/14/16 12:31) Oximetry (10/14/16 12:31) Oxygen Administration (10/14/16 12:31) Methylprednisolone So Succ Inj (Solumedr (10/14/16 12:45) Albuterol-Ipratropium Neb (Duoneb Neb) (10/14/16 12:45) Sodium Chloride 0.9% Flush (Ns Flush) (10/14/16 12:45) Basic Metabolic Panel (Bmp) (10/14/16 12:31) Complete Blood Count With Diff (10/14/16 12:31) Electrocardiogram (10/14/16 ) Resp Bipap / Cpap Non Invas Vt (10/14/16 ) Admit Order (Ed Use Only) (10/14/16 14:06) Labs Laboratory Tests Test 10/14/16 12:45 White Blood Count 8.9 TH/MM3 Red Blood Count 4.96 MIL/MM3 Hemoglobin 14.6 GM/DL Hematocrit 43.8 % Mean Corpuscular Volume 88.4 FL Mean Corpuscular Hemoglobin 29.5 PG Mean Corpuscular Hemoglobin 33.4 % Concent Red Cell Distribution Width 13.0 % Platelet Count 192 TH/MM3 Mean Platelet Volume 10.1 FL Neutrophils (%) (Auto) 58.2 % Lymphocytes (%) (Auto) 27.8 % Monocytes (%) (Auto) 10.3 % Eosinophils (%) (Auto) 3.3 % Basophils (%) (Auto) 0.4 % Neutrophils # (Auto) 5.1 TH/MM3 Lymphocytes # (Auto) 2.5 TH/MM3 Monocytes # (Auto) 0.9 TH/MM3 Eosinophils # (Auto) 0.3 TH/MM3 Basophils # (Auto) 0.0 TH/MM3 CBC Comment DIFF FINAL Differential Comment Sodium Level 140 MEQ/L Potassium Level 4.9 MEQ/L Chloride Level 106 MEQ/L Carbon Dioxide Level 23.8 MEQ/L Anion Gap 10 MEQ/L Blood Urea Nitrogen 10 MG/DL Creatinine 1.00 MG/DL Estimat Glomerular Filtration 92 ML/MIN Rate Random Glucose 79 MG/DL Calcium Level 9.3 MG/DL [facility] Medical Decision Making Medical Screen Exam Complete: Yes Emergency Medical Condition: Yes Medical Record Reviewed: Yes Differential Diagnosis Asthma exacerbation, reactive airway disease, pneumonia, pneumothorax, pulmonary embolism Narrative Course 26-year-old male with history of asthma presents with persistent wheezing, cough , shortness of breath for the past 5 days, persistent despite being on prednisone 50 mg a day. On examination he is tachypneic, course breath sounds bilaterally with prolonged expiratory phase. Plan is for basic lab work, ABG, chest x-ray, EKG and ECG monitoring. He'll be given DuoNeb treatment 3, 125 mg of Solu-Medrol. Started on bipap with significant improvement in his symptoms. The plan would be to admit the patient. Discussed with Dr. Valladares who is agreeable. Procedures EKG Prior to Arrival: Yes Diagnosis Primary Impression: Acute asthma exacerbation Qualified Code: J45.901 - Asthma with acute exacerbation, unspecified asthma severity Additional Impression: Status asthmaticus Qualified Code: J45.902 - Asthma with status asthmaticus, unspecified asthma severity Admitting Information Admitting Physician Requests: Admit Chuy Chiu October 14, 2016 12:36
[2016-10-14] MEDS ORDERED: SODIUM CHLORIDE 0.9% FLUSH 10 ML FLUSH IVF PRN (12:45)
[2016-10-14] MEDS: RESP: ALBUTEROL 2.5 MG/IPRATROPIUM 0.5 MG NEB (SCH) INH ×3 (12:45→13:15)
[2016-10-14] MEDS ORDERED: methylPREDNISolone SOD SUCC 125 MG/2 ML VIAL IVP ONE (12:45)
[2016-10-14 13:04] LABS: AUTOMATED NEUTROPHIL # 5.1 TH/MM3 (1.8-7.7); BASOPHIL % 0.4 % (0.0-2.0); EOSINOPHIL # 0.3 TH/MM3 (0-0.4); EOSINOPHIL % 3.3 % (0.0-4.0); HEMATOCRIT 43.8 % (39.0-51.0); HEMO FLAGS DIFF FINAL; LYMPH % 27.8 % (9.0-44.0); LYMPHOCYTE # 2.5 TH/MM3 (1.0-4.8); MEAN CELL VOLUME 88.4 FL (80.0-100.0); MEAN CORPUSCULAR HEMOGLOBIN 29.5 PG (27.0-34.0); MEAN CORPUSCULAR HGB CONC 33.4 % (32.0-36.0); MONO % 10.3 % (0.0-8.0); NEUT % 58.2 % (16.0-70.0); PLATELET COUNT 192 TH/MM3 (150-450); RED BLOOD COUNT 4.96 MIL/MM3 (4.50-5.90); WHITE BLOOD COUNT 8.9 TH/MM3 (4.0-11.0)
--- NOTE | 2016-10-14 13:27 | RADRPT ---
EXAM DATE/TIME: 10/14/2016 13:05 [place] COMPARISON: CHEST SINGLE AP, October 10, 2016, 7:40. INDICATIONS : Difficulty breathing. Short of breath. MEDICAL HISTORY : Asthma. SURGICAL HISTORY : Appendectomy. ENCOUNTER: Initial ACUITY: 4 - 6 days PAIN SCORE: 3/10 LOCATION: Bilateral chest FINDINGS: A single view of the chest demonstrates the lungs to be symmetrically aerated without evidence of mas s, infiltrate or effusion. The cardiomediastinal contours are unremarkable. Osseous structures are intact and stable. Stable curvature of the thoracic spine to the right.. CONCLUSION: No acute disease. No significant change has occurred. Henry Plascencia MD on October 14, 2016 at 13:25 Board Certified Radiologist. This report was verified electronically.
[2016-10-14 13:35] LABS: BICARBONATE 23.8 MEQ/L (21.0-32.0)
[2016-10-14 13:39] LABS: POTASSIUM 4.9 MEQ/L (3.5-5.1)
--- NOTE | 2016-10-14 13:49 | PD ---
Data Data Last Documented VS Vital Signs Date Time Temp Pulse Resp B/P Pulse Ox O2 Delivery O2 Flow Rate FiO2 10/14/16 13:00 98 BiPAP 10/14/16 12:28 86 40 2 10/14/16 12:19 97.8 142/88 Orders Arterial Blood Gas (Abg) (10/14/16 12:31) Chest, Single Ap (10/14/16 12:31) Ecg Monitoring (10/14/16 12:31) Iv Access Insert/Monitor (10/14/16 12:31) Oximetry (10/14/16 12:31) Oxygen Administration (10/14/16 12:31) Methylprednisolone So Succ Inj (Solumedr (10/14/16 12:45) Albuterol-Ipratropium Neb (Duoneb Neb) (10/14/16 12:45) Sodium Chloride 0.9% Flush (Ns Flush) (10/14/16 12:45) Basic Metabolic Panel (Bmp) (10/14/16 12:31) Complete Blood Count With Diff (10/14/16 12:31) Electrocardiogram (10/14/16 ) Resp Bipap / Cpap Non Invas Vt (10/14/16 ) Labs Laboratory Tests Test 10/14/16 12:45 White Blood Count 8.9 TH/MM3 Red Blood Count 4.96 MIL/MM3 Hemoglobin 14.6 GM/DL Hematocrit 43.8 % Mean Corpuscular Volume 88.4 FL Mean Corpuscular Hemoglobin 29.5 PG Mean Corpuscular Hemoglobin 33.4 % Concent Red Cell Distribution Width 13.0 % Platelet Count 192 TH/MM3 Mean Platelet Volume 10.1 FL Neutrophils (%) (Auto) 58.2 % Lymphocytes (%) (Auto) 27.8 % Monocytes (%) (Auto) 10.3 % Eosinophils (%) (Auto) 3.3 % Basophils (%) (Auto) 0.4 % Neutrophils # (Auto) 5.1 TH/MM3 Lymphocytes # (Auto) 2.5 TH/MM3 Monocytes # (Auto) 0.9 TH/MM3 Eosinophils # (Auto) 0.3 TH/MM3 Basophils # (Auto) 0.0 TH/MM3 CBC Comment DIFF FINAL Differential Comment Sodium Level 140 MEQ/L Potassium Level 4.9 MEQ/L Chloride Level 106 MEQ/L Carbon Dioxide Level 23.8 MEQ/L Anion Gap 10 MEQ/L Blood Urea Nitrogen 10 MG/DL Creatinine 1.00 MG/DL Estimat Glomerular Filtration 92 ML/MIN Rate Random Glucose 79 MG/DL Calcium Level 9.3 MG/DL MDM Supervised Visit with INÉS: Yes Differential Diagnosis I, Dr. Flores, have reviewed the advance practice practioner's documentation and am in agreement, met with the patient face to face, made the diagnosis, and the medical decision making was done by me. *My assessment and Findings: 26-year-old female with history of asthma with previous intubation here with complaint of 5 days of cough, chest congestion and wheezing. Seen here on 10/10 with asthma exacerbation and treated in the ER with improvement and discharged home with steroids which she has been compliant with. Notes worsening breathing. On exam patient is tachypneic in the 40s with increased work of breathing, grunting and pursed lips. Wet, wheezing throughout. Speaking in 2-3 word sentences. Differential includes asthma exacerbation, status asthmaticus, hypoxic or hypercapnic respiratory failure, pneumonia and less likely PE. EKG, laboratory workup and chest x-ray were unremarkable. We were able to get a venous blood gas, but unfortunately not an arterial blood gas. Patient is markedly improved after being on BiPAP therapy and therefore will not obtain a ABG. Patient will be admitted for further management. Critical Care Narrative Aggregate critical care time was 35 minutes. Time to perform other separately billable procedures was not included in the critical care time. My time did not include minutes spent treating any other patients simultaneously or on activities that did not directly contribute to the patient's treatment. The services I provided to this patient were to treat and/or prevent clinically significant deterioration that could result in: Cardiopulmonary decompensation, , disability I provided critical care services requiring my management, as noted below: Chart data review, documentation time, medication orders and management, vital sign assessments/reviewing monitor data, ordering and reviewing lab tests, ordering and interpreting/reviewing x-rays and diagnostic studies, care of the patient and discussion of the patient with the admitting physicians. Diagnosis Primary Impression: Status asthmaticus Qualified Code: J45.902 - Asthma with status asthmaticus, unspecified asthma severity Admitting Information Admitting Physician Requests: Admit Latonya Flores MD October 14, 2016 13:49
[2016-10-14] MEDS ORDERED: SODIUM CHLORIDE 0.9% FLUSH 10 ML FLUSH IV FLUSH PRN (14:15)
[2016-10-14] MEDS ORDERED: RESP: ALBUTEROL 2.5 MG/3 ML NEB (PRN) NEB (15:00)
[2016-10-14] MEDS ORDERED: methylPREDNISolone SOD SUCC 125 MG/2 ML VIAL IV PUSH SCH (15:00)
[2016-10-14] MEDS: SODIUM CHLORIDE 0.9% FLUSH 10 ML FLUSH IV FLUSH SCH (15:03)
[2016-10-14] MEDS: RESP: ALBUTEROL 2.5 MG/IPRATROPIUM 0.5 MG NEB (SCH) NEB ×2 (15:09→19:52)
--- NOTE | 2016-10-14 15:44 | HHI.HP ---
[facility] Service [facility] Primary Care Physician No Primary Care Physician Admission Diagnosis status asthmaticus Diagnoses: Travel History International Travel<30 Days: No Contact w/Intl Traveler <30 Da: No Traveled to Known Affected Are: No History of Present Illness 26-year-old male with a medical history significant for asthma. He has had severe exacerbations in the past requiring intubation about 10 years ago. He presented to the emergency room on the for asthma exacerbation. He was given a five-day course of prednisone and albuterol inhaler as needed. However his symptoms persisted. He presented today with worsening cough, congestion, wheezing. On arrival, he was in significant distress with increased work of breathing. He was given IV Solu-Medrol, breathing treatments and was placed on a BiPAP. His respiratory symptoms have since improved. Patient reports he moved here about a year ago and does not have the primary care physician or a roof slater. He does not have a nebulizer machine at home and does not have any prescribed medications. Currently reports to me that he is breathing more comfortably with a facemask. Review of Systems Constitutional: DENIES: Fever, Chills Ears, nose, mouth, throat: COMPLAINS OF: Running Nose Respiratory: COMPLAINS OF: Cough, Wheezing, Shortness of breath Except as stated in HPI: all other systems reviewed are Neg Past Family Social History Past Medical History Asthma Past Surgical History Appendectomy Surgery for testicular torsion Reported Medications Albuterol inhaler Allergies: Coded Allergies: No Known Allergies (Unverified , 10/14/16) Family History Both parents with history of asthma Social History Patient denies using tobacco. He denies tobacco exposure He denies alcohol or illicit drugs. Physical Exam Vital Signs Vital Signs Date Time Temp Pulse Resp B/P Pulse Ox O2 Delivery O2 Flow Rate FiO2 10/14/16 15:09 99 21 10/14/16 13:00 98 BiPAP 10/14/16 13:00 98 BiPAP 10/14/16 13:00 100 30 10/14/16 12:28 86 40 100 Nasal Cannula 2 10/14/16 12:19 97.8 84 34 142/88 99 Physical Exam GENERAL: This is a well-nourished, well-developed patient, in no apparent distress. SKIN: No rashes, ecchymoses or lesions. Cool and dry. HEAD: Atraumatic. Normocephalic. No temporal or scalp tenderness. EYES: Pupils equal round and reactive. Extraocular motions intact. No scleral icterus. No injection or drainage. ENT: Nose without bleeding, purulent drainage or septal hematoma. Throat without erythema, tonsillar hypertrophy or exudate. Uvula midline. Airway patent. NECK: Trachea midline. No JVD or lymphadenopathy. Supple, nontender, no meningeal signs. CARDIOVASCULAR: Regular rate and rhythm without murmurs, gallops, or rubs. RESPIRATORY: Good air movement. Mostly clear to auscultation bilaterally except for some very faint diffuse expiratory wheezing. GASTROINTESTINAL: Abdomen soft, non-tender, nondistended. No hepato-splenomegaly , or palpable masses. No guarding. MUSCULOSKELETAL: Extremities without clubbing, cyanosis, or edema. No joint tenderness, effusion, or edema noted. No calf tenderness. Negative Homans sign bilaterally. NEUROLOGICAL: Awake and alert. Cranial nerves II through XII intact. Motor and sensory grossly within normal limits. Five out of 5 muscle strength in all muscle groups. Normal speech. Laboratory Laboratory Tests Test 10/14/16 12:45 White Blood Count 8.9 Red Blood Count 4.96 Hemoglobin 14.6 Hematocrit 43.8 Mean Corpuscular Volume 88.4 Mean Corpuscular Hemoglobin 29.5 Mean Corpuscular Hemoglobin 33.4 Concent Red Cell Distribution Width 13.0 Platelet Count 192 Mean Platelet Volume 10.1 Neutrophils (%) (Auto) 58.2 Lymphocytes (%) (Auto) 27.8 Monocytes (%) (Auto) 10.3 Eosinophils (%) (Auto) 3.3 Basophils (%) (Auto) 0.4 Neutrophils # (Auto) 5.1 Lymphocytes # (Auto) 2.5 Monocytes # (Auto) 0.9 Eosinophils # (Auto) 0.3 Basophils # (Auto) 0.0 CBC Comment DIFF FINAL Differential Comment Sodium Level 140 Potassium Level 4.9 Chloride Level 106 Carbon Dioxide Level 23.8 Anion Gap 10 Blood Urea Nitrogen 10 Creatinine 1.00 Estimat Glomerular Filtration 92 Rate Random Glucose 79 Calcium Level 9.3 Result Diagram: 10/14/16 1245 10/14/16 1245 Assessment and Plan Problem List: (1) Acute respiratory failure ICD Code: J96.00 Status: Acute (2) Status asthmaticus ICD Code: J45.902 Status: Acute (3) Noncompliance ICD Code: Z91.19 Status: Acute (4) Poorly controlled persistent asthma ICD Code: J45.998 Status: Acute Assessment and Plan 26-year-old male with acute respiratory failure secondary to status asthmaticus , failed outpatient treatment. Status post BiPAP in the emergency room, improving. Admit to inpatient Continue IV Solu-Medrol 60 mg every 6 hours, supplemental oxygen. Bipap if needed. H/O of respiratory failure requiring intubation. Chest x-ray with no evidence of pneumonia. He has been having some common cold symptoms. Continue to monitor for fevers or any signs of superimposed bacterial infections. Scheduled breathing treatments with DuoNeb every 4 hours Start Singulair Consult pulmonology. - He needs appropriate follow-up to prevent recurrent hospitalization. Patient counseled about the need to follow up with PCP and Pulmonology. GI prophylaxis: Pepcid. Stool softener PRN constipation. DVT PPx: Low risk. Encourage ambulation Physician Certification 2 Midnight Certification Type: Admission for Inpatient Services Order for Inpatient Services The services are ordered in accordance with Medicare regulations or non- Medicare payer requirements, as applicable. In the case of services not specified as inpatient-only, they are appropriately provided as inpatient services in accordance with the 2-midnight benchmark. Estimated LOS (days): 3 days is the estimated time the patient will need to remain in the hospital, assuming treatment plan goals are met and no additional complications. Post-Hospital Plan: Home Problem Qualifiers (1) Status asthmaticus: Qualified Code: J45.902 - Asthma with status asthmaticus, unspecified asthma severity Jolie Valladares MD October 14, 2016 15:44
[2016-10-14] MEDS ORDERED: ACETAMINOPHEN 325 MG TAB PO PRN (18:15)
--- NOTE | 2016-10-14 19:38 | MB ---
cc: Jeniffer ROMAN M.D. DATE OF CONSULTATION 10/14/16 REASON FOR CONSULTATION Asthma. PRESENT ILLNESS This is a 26 year old man with a history of asthma. He has had previous admissions to the hospital with acute exacerbation of asthma. The patient apparently came to the ER with severe exacerbation with wheezing and chest tightness, cough and postnasal drip. He had been on prednisone as an outpatient but failed to improve and due to persistent coughing and chest tightness, he was seen in the ER, was given IV Solu-Medrol and nebulized DuoNeb solution, initially placed on BiPap and subsequently transferred to the floor. Presently, he is off of BiPap and is doing better. He is on oxygen via nasal cannula. His saturations are adequate over 93%. The patient still hs a cough but does not bring up any sputum. He wants to leave. He has had no chest pains. He does have mild nasal congestion. PAST MEDICAL HISTORY 1. History of appendectomy, 2. History of recurrent exacerbation of asthma 3. History for respiratory failure requiring ventilator support 4. Previous history of testicular surgery for torsion MEDICATIONS Albuterol inhaler p.r.n. ALLERGIES None listed. FAMILY HISTORY Both parents with a history of asthma. HABITS The patient does not smoke, no significant alcohol use. REVIEW OF SYSTEMS The patient is overweight. He has nasal congestion and cough, wheezing, has epigastric distress and reflux. No urinary symptoms or GI symptoms. No leg swelling or skin rash. No anxiety. No depression. The other system review is negative. PHYSICAL EXAMINATION GENERAL: This is a moderately overweight young man in no acute distress. VITAL SIGNS: Blood pressure 138/80, pulse is 90, respirations 18, temperature 97.5. HEENT: Head normocephalic. Pupils are reactive. Nasal mucosa edematous. Throat is injected. NECK: Supple. No bruits. No lymphadenopathy or thyromegaly. CHEST: Equal movements with decreased excursions. Breath sounds slightly diminished at the periphery with expiratory wheezes bilaterally and prolonged expirations. CARDIAC: Heart sounds are regular S1-S2. No murmur. No S3. ABDOMEN: Soft, scaphoid without mass. No organomegaly or tenderness. Bowel sounds are active. EXTREMITIES: No lesions or edema. No calf tenderness. NEUROLOGIC: Reflexes are brisk with no gross motor deficits. SKIN: No lesions observed. IMPRESSION 1. Asthmatic bronchitis 2. Allergic rhinitis. PLAN The patient has been placed on Solu-Medrol 40 mg IV q. six. We will check his peak flows and also add Symbicort 160/4.5 two puffs twice daily. DuoNeb solution with a nebulizer q.i.d. Arrange a home nebulizer for him to be used. He was advised to comply in using his inhaled steroid on a regular basis. If he has significant nasal symptoms, Flonase nasal spray two sprays in his nostril to be added as well. Thank you Dr. Jolie Valladares for this consultation. MD CHASTITY Baires/ /7:16 PM /7:29 PM
[2016-10-14] MEDS: FAMOTIDINE 20 MG TAB PO SCH (20:46)
[2016-10-14] MEDS: BUDESONIDE-FORMOTEROL 160/4.5 MCG INHALER INH SCH (20:46)
[2016-10-14] MEDS: methylPREDNISolone SOD SUCC 125 MG/2 ML VIAL IV PUSH SCH (20:46)
[2016-10-14] MEDS ORDERED: MONTELUKAST SODIUM 10 MG TAB PO SCH (21:00)
[2016-10-15 00:04] VITALS: BP 132/65; PULSE 92; RESP 16; TEMP 97.4; O2SAT 96
[2016-10-15] MEDS: RESP: ALBUTEROL 2.5 MG/IPRATROPIUM 0.5 MG NEB (SCH) NEB ×4 (00:16→11:11)
[2016-10-15] MEDS: methylPREDNISolone SOD SUCC 125 MG/2 ML VIAL IV PUSH SCH ×2 (02:48→08:51)
[2016-10-15 04:10] VITALS: BP 134/77; PULSE 74; RESP 16; TEMP 97.1; O2SAT 97
[2016-10-15 08:31] VITALS: BP 127/60; PULSE 96; RESP 20; TEMP 97.3; O2SAT 97
[2016-10-15] MEDS: BUDESONIDE-FORMOTEROL 160/4.5 MCG INHALER INH SCH (08:50)
[2016-10-15] MEDS: FAMOTIDINE 20 MG TAB PO SCH (08:51)
[2016-10-15] MEDS: SODIUM CHLORIDE 0.9% FLUSH 10 ML FLUSH IV FLUSH SCH (08:54)
--- NOTE | 2016-10-15 09:37 | EKG ---
Date Performed: 10/14/2016 Time Performed: 13:05:22 PTAGE: 26 years EKG: Sinus rhythm WITH SINUS ARRHYTHMIA MODERATE VOLTAGE CRITERIA FOR LVH, CONSIDER NORMAL VARIANT BORDERLINE ECG INTE RPRETATION BASED ON A DEFAULT AGE OF 40 YEARS NO PREVIOUS TRACING DOCTOR: Ravi Barclay Interpretating Date/Time 10/15/2016 09:36:48
[2016-10-15] MEDS ORDERED: PRED20 PO (11:09)
[2016-10-15] MEDS ORDERED: FAMO20TA2 PO (11:09)
[2016-10-15] MEDS ORDERED: MONT10TA4 PO (11:09)
[2016-10-15] MEDS ORDERED: VENTAER INH (11:09)
[2016-10-15] MEDS ORDERED: NEBULIZER1 MI1 (11:09)
[2016-10-15] MEDS ORDERED: ALBU0.63 NEB ×2 (11:09→11:10)
--- NOTE | 2016-10-15 11:16 | HHI.PR ---
Subjective Remarks Patient is adamant about going home today. He is on room air. Stated he is feeling much better and back at baseline. Objective Vitals Vital Signs Date Time Temp Pulse Resp B/P Pulse Ox O2 Delivery O2 Flow Rate FiO2 10/15/16 08:31 97.3 96 20 127/60 97 10/15/16 04:10 97.1 74 16 134/77 97 10/15/16 00:04 97.4 92 16 132/65 96 10/14/16 20:05 99.5 85 16 140/67 95 10/14/16 19:55 98 21 10/14/16 16:45 99.3 91 17 140/72 98 10/14/16 15:09 99 21 10/14/16 13:00 98 BiPAP 10/14/16 13:00 98 BiPAP 10/14/16 13:00 100 30 10/14/16 12:28 86 40 100 Nasal Cannula 2 10/14/16 12:19 97.8 84 34 142/88 99 I/O 10/14/16 10/14/16 10/14/16 10/15/16 10/15/16 10/15/16 07:00 15:00 23:00 07:00 15:00 23:00 Intake Total 240 ml 120 ml Balance 240 ml 120 ml Intake Oral 240 ml 120 ml # Voids 2 2 Result Diagram: 10/14/16 1245 10/14/16 1245 Imaging Last Impressions Chest X-Ray 10/14/16 1231 Signed Impressions: Service Date/Time: Friday, October 14, 2016 13:05 - CONCLUSION: No acute disease. No significant change has occurred. Henry Plascencia MD Objective Remarks GENERAL: This is a well-nourished, well-developed patient, in no apparent distress. CARDIOVASCULAR: Normal rate and regular rhythm without murmurs, gallops, or rubs. RESPIRATORY: Good respiratory efforts. Good air movement. There are some faint and diffuse expiratory wheezing. GASTROINTESTINAL: Abdomen soft, non-tender, non-distended. Normal active bowel sounds MUSCULOSKELETAL: Extremities without cyanosis, or edema. NEURO: Alert & Oriented x4 to person, place, time, situation. Moves all ext x4 PSYCH: Appropriate mood and affect. A/P Problem List: (1) Acute respiratory failure ICD Code: J96.00 Status: Acute (2) Status asthmaticus ICD Code: J45.902 Status: Acute (3) Noncompliance ICD Code: Z91.19 Status: Acute (4) Poorly controlled persistent asthma ICD Code: J45.998 Status: Acute Assessment and Plan 26-year-old male with poorly controlled asthma admitted with acute respiratory failure secondary to status asthmaticus, he failed outpatient treatment. The patient required BiPAP on arrival. He has been treated with IV Solu-Medrol, breathing treatments, and supplemental oxygen. Patient was evaluated by pulmonology. He quickly improved, doing well on room air and requested discharge home. He reports he will be compliant with his asthma regimen. He was given a prescription for nebulizer and breathing treatments. He is discharged on a prednisone taper. He is advised to follow up outpatient with pulmonology. Patient totally counseled on the need to follow-up on asthma treatment plan in order to avoid repeated hospitalization. Discharge Planning Discharge home in stable condition Activity: Regular as tolerated Diet: Regular as tolerated Follow-up: With pulmonology, call for appointment Medications: Per med rec Problem Qualifiers (1) Status asthmaticus: Qualified Code: J45.902 - Asthma with status asthmaticus, unspecified asthma severity Jolie Valladares MD October 15, 2016 11:16
== END 2016-10-15 11:57 | disposition home or self-care (01) | DRG 202 ==
LOC: NEPD 12:16 → NEDA 14:07 → N05A 16:18
PROVIDERS: ADMIT Family Medicine; ATTEND Family Medicine
DX: J45.902 Unspecified asthma with status asthmaticus (principal); J96.00 Acute respiratory failure, unspecified whether with hypoxia or hypercapnia; F41.9 Anxiety disorder, unspecified; Z91.19 Patient's noncompliance with other medical treatment and regimen
CPT/HCPCS: 71010; 80048; 85025; 93005; 94002; 94640; 94664; 96374; J2930

== ENCOUNTER 2017-03-03 08:43 | Emergency (ER) | payer OTHER ==
[~2017-03-03 08:43] MED LIST changes: -CLAR10CA3 PO; +FAMO20TA2 PO; -FAMO40S PO; +MONT10TA4 PO; +NEBULIZER1 MI1; +PRED20 PO; -PRED50 PO
[2017-03-03 08:44] VITALS: BP 154/63; PULSE 106
[2017-03-03] MEDS ORDERED: RESP: ALBUTEROL 2.5 MG/IPRATROPIUM 0.5 MG NEB (SCH) INH ONE (09:00)
[2017-03-03] MEDS ORDERED: methylPREDNISolone SOD SUCC 125 MG/2 ML VIAL IV PUSH ONE (09:00)
[2017-03-03] MEDS ORDERED: SODIUM CHLORIDE 0.9% FLUSH 10 ML FLUSH IVF PRN (09:00)
[2017-03-03 09:17] LABS: AUTOMATED NEUTROPHIL # 5.1 TH/MM3 (1.8-7.7); BASOPHIL % 0.4 % (0.0-2.0); EOSINOPHIL # 0.3 TH/MM3 (0-0.4); EOSINOPHIL % 3.1 % (0.0-4.0); HEMATOCRIT 47.4 % (39.0-51.0); HEMO FLAGS DIFF FINAL; LYMPH % 24.4 % (9.0-44.0); LYMPHOCYTE # 2.1 TH/MM3 (1.0-4.8); MEAN CELL VOLUME 88.2 FL (80.0-100.0); MONO % 12.1 % (0.0-8.0); PLATELET COUNT 200 TH/MM3 (150-450); RED BLOOD COUNT 5.37 MIL/MM3 (4.50-5.90); RED CELL DISTRIBUTION WIDTH 13.2 % (11.6-17.2); WHITE BLOOD COUNT 8.5 TH/MM3 (4.0-11.0)
--- NOTE | 2017-03-03 09:32 | PD ---
HPI Chief Complaint: Respiratory Distress Time Seen by Provider: 08:52 Travel History International Travel<30 days: No Contact w/Intl Traveler<30days: No Traveled to known affect area: No History of Present Illness HPI 26-year-old male patient with history of asthma, presents to the ER today for cough and shortness of breath starting yesterday. He has been using his nebulizers and inhalers without significant relief. He states that this happens to him occasionally, especially when it starts getting called in the evenings. He denies any fevers or any other symptoms. He states is worse with deep breaths. Modifying Factors: Worse with coughing and deep breaths Associated Signs & Symptoms: Cough, shortness of breath Risk Factors: Asthma PFSH Past Medical History Asthma: Yes Anxiety: Yes Cancer: No Cardiovascular Problems: No Diminished Hearing: No Endocrine: No Genitourinary: No Immune Disorder: No Musculoskeletal: No Neurologic: No Psychiatric: No Reproductive: No Respiratory: Yes Past Surgical History Abdominal Surgery: Yes (APPENIDX, TORSO TURN) Appendectomy: Yes Other Surgery: Yes (RIGHT TESTICLE SX) Social History Alcohol Use: No Tobacco Use: No Substance Use: No Allergies-Medications (Allergen,Severity, Reaction): Coded Allergies: No Known Allergies (Unverified , 03/03/17) Reported Meds & Prescriptions Reported Meds & Active Scripts Active Albuterol Neb (Albuterol Sulfate) 0.63 Mg/3 Ml Neb 0.63 Mg NEB Q4HR NEB PRN Nebulizer 1 Mis Mis 1 Ea .ROUTE DIRECTED Famotidine 20 Mg Tab 20 Mg PO BID Montelukast (Montelukast Sodium) 10 Mg Tab 10 Mg PO HS Prednisone 20 Mg Tab 20 Mg PO DIRECTED Take 60 MG daily x 4 days, then 40 MG x 4 days, then 20 MG daily x 4 days. Ventolin Hfa 18 GM Inh (Albuterol Sulfate) 90 Mcg/Act Aer 2 Puff INH Q4-6H PRN Symbicort Inh (Budesonide/Formoterol Fumarate) 160-4.5 Mcg/Act Aero 2 Puff INH Q12HR Review of Systems Except as stated in HPI: all other systems reviewed are Neg Physical Exam Narrative GENERAL: Well-developed young male patient currently in mild distress. Awake and oriented 3. SKIN: Focused skin assessment warm/dry. HEAD: Atraumatic. Normocephalic. EYES: Pupils equal and round. No scleral icterus. No injection or drainage. ENT: No nasal bleeding or discharge. Mucous membranes pink and moist. NECK: Trachea midline. No JVD. CARDIOVASCULAR: Regular rate and rhythm. No murmur appreciated. RESPIRATORY: Mild accessory muscle use. Decreased bilaterally to auscultation. Breath sounds equal bilaterally. GASTROINTESTINAL: Abdomen soft, non-tender, nondistended. Hepatic and splenic margins not palpable. MUSCULOSKELETAL: No obvious deformities. No clubbing. No cyanosis. No edema. NEUROLOGICAL: Awake and alert. No obvious cranial nerve deficits. Motor grossly within normal limits. Normal speech. PSYCHIATRIC: Appropriate mood and affect; insight and judgment normal. Data Data Last Documented VS Vital Signs Date Time Temp Pulse Resp B/P (MAP) Pulse Ox O2 Delivery O2 Flow Rate FiO2 03/03/17 08:49 102 16 100 Room Air 03/03/17 08:44 154/63 (93) Orders Orders Complete Blood Count With Diff (03/03/17 08:52) Comprehensive Metabolic Panel (03/03/17 08:52) Iv Access Insert/Monitor (03/03/17 08:52) Electrocardiogram (03/03/17 08:52) Ecg Monitoring (03/03/17 08:52) Oximetry (03/03/17 08:52) Oxygen Administration (03/03/17 08:52) Sodium Chloride 0.9% Flush (Ns Flush) (03/03/17 09:00) Methylprednisolone So Succ Inj (Solumedr (03/03/17 09:00) Albuterol-Ipratropium Neb (Duoneb Neb) (03/03/17 09:00) Chest, Single Ap (03/03/17 09:21) Labs Laboratory Tests Test 03/03/17 08:56 White Blood Count 8.5 TH/MM3 Red Blood Count 5.37 MIL/MM3 Hemoglobin 16.1 GM/DL Hematocrit 47.4 % Mean Corpuscular Volume 88.2 FL Mean Corpuscular Hemoglobin 30.0 PG Mean Corpuscular Hemoglobin Concent 34.0 % Red Cell Distribution Width 13.2 % Platelet Count 200 TH/MM3 Mean Platelet Volume 10.6 FL Neutrophils (%) (Auto) 60.0 % Lymphocytes (%) (Auto) 24.4 % Monocytes (%) (Auto) 12.1 % Eosinophils (%) (Auto) 3.1 % Basophils (%) (Auto) 0.4 % Neutrophils # (Auto) 5.1 TH/MM3 Lymphocytes # (Auto) 2.1 TH/MM3 Monocytes # (Auto) 1.0 TH/MM3 Eosinophils # (Auto) 0.3 TH/MM3 Basophils # (Auto) 0.0 TH/MM3 CBC Comment DIFF FINAL Differential Comment Blood Urea Nitrogen 9 MG/DL Creatinine 1.10 MG/DL Random Glucose 86 MG/DL Total Protein 8.5 GM/DL Albumin 4.9 GM/DL Calcium Level 9.6 MG/DL Alkaline Phosphatase 81 U/L Aspartate Amino Transf (AST/SGOT) 15 U/L Alanine Aminotransferase (ALT/SGPT) 24 U/L Total Bilirubin 0.4 MG/DL Sodium Level 142 MEQ/L Potassium Level 4.0 MEQ/L Chloride Level 112 MEQ/L Carbon Dioxide Level 21.0 MEQ/L Anion Gap 9 MEQ/L Estimat Glomerular Filtration Rate 82 ML/MIN MDM Medical Decision Making Medical Screen Exam Complete: Yes Emergency Medical Condition: Yes Medical Record Reviewed: Yes Interpretation(s) Laboratory Tests Test 03/03/17 08:56 Monocytes (%) (Auto) 12.1 % (0.0-8.0) Monocytes # (Auto) 1.0 TH/MM3 (0-0.9) Total Protein 8.5 GM/DL (6.4-8.2) Chloride Level 112 MEQ/L (98-107) Estimat Glomerular Filtration Rate 82 ML/MIN (>89) Last 24 hours Impressions Chest X-Ray 03/03/17 0921 Signed Impressions: Service Date/Time: Friday, March 03, 2017 09:33 - CONCLUSION: Normal examination. Lino Benson Jr., MD Differential Diagnosis Asthma exacerbation versus pneumonia versus pneumothorax versus anxiety attack Narrative Course Patient is given a nebulizer and Solu-Medrol in the ER. Chest x-ray ordered for further evaluation. Chest x-ray did not show any signs of pneumonia or other acute processes. He was reevaluated again at 10:45 AM, is feeling much improved. At this point, my plan would be to release him with further symptomatically relief or asthma exacerbation. Return for any worsening in symptoms, new issues as needed. The plan has been discussed with him and he states understanding. Diagnosis Primary Impression: Acute asthma exacerbation Med/Other Pt SpecificInfo: Prescription(s) given Scripts Albuterol Neb (Albuterol Neb) 0.63 Mg/3 Ml Neb 0.63 MG NEB Q4HR NEB Y for SHORTNESS OF BREATH, #1 BOX 1 Refill Prov: Regina Barrett MD 03/03/17 Prednisone (Prednisone) 20 Mg Tab 20 MG PO DIRECTED, #24 TAB 0 Refills Take 60 MG daily x 4 days, then 40 MG x 4 days, then 20 MG daily x 4 days. Prov: Regina Barrett MD 03/03/17 Albuterol 18 GM Inh (Ventolin Hfa 18 GM Inh) 90 Mcg/Act Aer 2 PUFF INH Q4-6H Y for SHORTNESS OF BREATH, #1 INHALER 0 Refills Prov: Regina Barrett MD 03/03/17 Disposition: 01 DISCHARGE HOME Condition: Stable Regina Barrett MD Mar 03, 2017 09:32
[2017-03-03 09:34] LABS: ANION GAP 9 MEQ/L (5-15); AST (GOT) 15 U/L (15-37); BLOOD UREA NITROGEN 9 MG/DL (7-18); CHLORIDE 112 MEQ/L (98-107); GLOMERULAR FILTRATION RATE 82 ML/MIN (>89); SODIUM (NA) 142 MEQ/L (136-145)
[2017-03-03 09:37] LABS: ALKALINE PHOSPHATASE 81 U/L (45-117); ALT (GPT) 24 U/L (12-78); TOTAL BILIRUBIN ADULT 0.4 MG/DL (0.2-1.0)
--- NOTE | 2017-03-03 09:53 | RADRPT ---
EXAM DATE/TIME: 03/03/2017 09:33 [facility] COMPARISON: CHEST SINGLE AP, October 14, 2016, 13:05. INDICATIONS : Short of breath. MEDICAL HISTORY : asthma, allergies SURGICAL HISTORY : None. ENCOUNTER: Initial ACUITY: 1 day PAIN SCORE: 0/10 LOCATION: Bilateral chest FINDINGS: A single view of the chest demonstrates the lungs to be symmetrically aerated without evidence of mas s, infiltrate or effusion. The cardiomediastinal contours are unremarkable. Osseous structures are intact. CONCLUSION: Normal examination. Lino Benson Jr., MD on March 03, 2017 at 9:52 Board Certified Radiologist. This report was verified electronically.
[2017-03-03] MEDS ORDERED: VENTAER INH (10:54)
[2017-03-03] MEDS ORDERED: ALBU0.63 NEB (10:54)
[2017-03-03] MEDS ORDERED: PRED20 PO (10:54)
== END 2017-03-03 11:29 | disposition home or self-care (01) ==
LOC: NEPC 08:43
DX: J45.901 Unspecified asthma with (acute) exacerbation (principal)
CPT/HCPCS: 71010; 80053; 85025; 94664; 96374; 99284; J2930

== ENCOUNTER → 2017-04-22 | Outpatient (CLI) | payer OTHER ==
--- NOTE | 2017-04-22 14:51 | RADRPT ---
EXAM DATE/TIME: 04/22/2017 14:10 [facility] COMPARISON: No previous studies available for comparison. INDICATIONS : Short of breath, cough and wheezing. MEDICAL HISTORY : Asthma SURGICAL HISTORY : Appendectomy. ENCOUNTER: Initial ACUITY: 1 day PAIN SCORE: 0/10 LOCATION: Bilateral chest FINDINGS: PA and lateral views of the chest demonstrate the lungs to be symmetrically aerated without evidence of mass, infiltrate or effusion. The cardiomediastinal contours are unremarkable. There is mild sco liotic deformity convex to the right. CONCLUSION: 1. No acute cardiopulmonary disease. Salvador Ortiz MD on April 22, 2017 at 14:50 Board Certified Radiologist. This report was verified electronically.
== END ==
LOC: HRAD 13:53
PROVIDERS: ATTEND Family Medicine
DX: R05 Cough (principal); R06.02 Shortness of breath; R06.2 Wheezing
CPT/HCPCS: 71020

== ENCOUNTER 2017-08-14 11:06 | Emergency (ER) | payer OTHER ==
[~2017-08-14] VITALS: Ht 185.4 cm; Wt 100.0 kg
[2017-08-14 11:08] VITALS: BP 146/87; PULSE 101; RESP 22; TEMP 98.5; O2SAT 99
[2017-08-14] MEDS ORDERED: ALBU0.08 NEB (11:26)
[2017-08-14] MEDS ORDERED: FLUTI220I INH (11:26)
[2017-08-14] MEDS ORDERED: VENTAER INH (11:26)
[2017-08-14] MEDS ORDERED: MONT10TA4 PO (11:26)
[2017-08-14] MEDS ORDERED: SODIUM CHLORIDE 0.9% FLUSH 10 ML FLUSH IVF PRN (11:30)
[2017-08-14] MEDS ORDERED: RESP: ALBUTEROL 2.5 MG/IPRATROPIUM 0.5 MG NEB (SCH) INH ONE (11:30)
--- NOTE | 2017-08-14 11:32 | PD ---
HPI Chief Complaint: Medication Refill Request Time Seen by Provider: 11:18 Travel History International Travel<30 days: No Contact w/Intl Traveler<30days: No Traveled to known affect area: No History of Present Illness HPI 27-year-old -[place] male with long history of asthma since a child, comes in with increased shortness of breath and wheezing. Patient states is been worse over the past week. He denies fever, chills, or productive cough. Patient has an albuterol nebulizer and metered-dose inhaler which he has been using without much improvement. Patient states in the past she has needed prednisone for his asthmatic symptoms. Patient states he also uses Flovent and Singulair in the past. He currently has no local primary care physician and normally goes to urgent care. He is simply requesting a refill of his albuterol. He is a non-smoker. He has no known drug allergies. PFSH Past Medical History Asthma: Yes Anxiety: Yes Cancer: No Cardiovascular Problems: No Diminished Hearing: No Endocrine: No Genitourinary: No Immune Disorder: No Musculoskeletal: No Neurologic: No Psychiatric: No Reproductive: No Respiratory: Yes Past Surgical History Abdominal Surgery: Yes (APPENIDX, TORSO TURN) Appendectomy: Yes Other Surgery: Yes (RIGHT TESTICLE SX) Social History Alcohol Use: No Tobacco Use: No Substance Use: No Allergies-Medications (Allergen,Severity, Reaction): Coded Allergies: No Known Allergies (Unverified , 03/03/17) Reported Meds & Prescriptions Reported Meds & Active Scripts Active Albuterol Neb (Albuterol Sulfate) 0.63 Mg/3 Ml Neb 0.63 Mg NEB Q4HR NEB PRN Ventolin Hfa 18 GM Inh (Albuterol Sulfate) 90 Mcg/Act Aer 2 Puff INH Q4-6H PRN Symbicort Inh (Budesonide/Formoterol Fumarate) 160-4.5 Mcg/Act Aero 2 Puff INH Q12HR Review of Systems Except as stated in HPI: all other systems reviewed are Neg General / Constitutional: No: Fever, Chills Eyes: No: Visual changes HENT: Positive: Rhinitis, Rhinorrhea, Congestion, No: Headaches, Vertigo, Lightheadedness, Sore Throat, Nosebleed, Neck Stiffness, Neck Pain, Dental Difficulties, Earache Cardiovascular: No: Chest Pain or Discomfort Respiratory: Positive: Shortness of Breath, Wheezing, No: Cough, Sneezing, Orthopnea, Hemoptysis, Night Sweats, Pleuritic Pain Gastrointestinal: No: Nausea, Abdominal Pain Genitourinary: No: Dysuria Musculoskeletal: No: Pain Skin: No Rash Neurologic: No: Weakness Psychiatric: No: Depression Endocrine: No: Polydipsia Hematologic/Lymphatic: No: Easy Bruising Physical Exam Narrative GENERAL: Patient appears in no obvious distress. SKIN: Warm and dry. Normal color. Normal turgor HEAD: Atraumatic. Normocephalic. EYES: Pupils equal and round. No scleral icterus. No injection or drainage. ENT: No nasal bleeding or discharge. Mucous membranes pink and moist. Patient has clear rhinitis. TMs are clear. Pharynx is unremarkable. No sinus tenderness to palpation or percussion. NECK: Trachea midline. Supple nontender CARDIOVASCULAR: Regular rate and rhythm. RESPIRATORY: No accessory muscle use. Mild to moderate diffuse wheezing to auscultation. No rales or rhonchi. Breath sounds equal bilaterally. GASTROINTESTINAL: Abdomen soft, non-tender, nondistended. Hepatic and splenic margins not palpable. MUSCULOSKELETAL: Extremities without clubbing, cyanosis, or edema. No obvious deformities. NEUROLOGICAL: Awake and alert. No obvious cranial nerve deficits. Motor grossly within normal limits. Five out of 5 muscle strength in the arms and legs. Normal speech. PSYCHIATRIC: Appropriate mood and affect; insight and judgment normal. Data Data Last Documented VS Vital Signs Date Time Temp Pulse Resp B/P (MAP) Pulse Ox O2 Delivery O2 Flow Rate FiO2 08/14/17 11:22 84 20 08/14/17 11:08 98.5 146/87 (106) 99 Orders Orders Albuterol-Ipratropium Neb (Duoneb Neb) (08/14/17 11:30) Sodium Chloride 0.9% Flush (Ns Flush) (08/14/17 11:30) MDM Medical Decision Making Medical Screen Exam Complete: Yes Emergency Medical Condition: Yes Differential Diagnosis Allergic asthma. Asthma with exacerbation. Poorly controlled persistent asthma. Narrative Course Patient is felt to be medically stable at time of exam. Patient is given a DuoNeb with improvement. Patient given refills of his Ventolin metered-dose inhaler 2 puffs every 4-6 hours as needed. Patient is given albuterol nebulizer 1 every 4 hours as needed #120 with no refill. Patient is restarted on Singulair 10 mg daily #30 Patient is restarted on Flovent 220 mcg 1 puff twice daily. Patient is to follow-up with local automotive electrical fitter as discussed. Patient can return if symptoms worsen as needed. Diagnosis Primary Impression: Acute asthma exacerbation Qualified Codes: J45.41 - Moderate persistent asthma with (acute) exacerbation Additional Impression: Medication refill Referrals: Henrietta Shrestha MD call for appointment Patient Instructions: Asthma (ED), General Instructions Departure Forms: Work Release Enter return to work date: Aug 15, 2017 Additional Instructions: Patient is given a DuoNeb with improvement. Patient given refills of his Ventolin metered-dose inhaler 2 puffs every 4-6 hours as needed. Patient is given albuterol nebulizer 1 every 4 hours as needed #120 with no refill. Patient is restarted on Singulair 10 mg daily #30 Patient is restarted on Flovent 220 mcg 1 puff twice daily. Patient is to follow-up with local automotive electrical fitter as discussed. Patient can return if symptoms worsen as needed. Med/Other Pt SpecificInfo: Prescription(s) given Scripts Fluticasone 12 GM Inh (Flovent Hfa 12 GM Inh) 220 Mcg/Act Inh 1 PUFF INH BID for Asthma Management, #1 INHALER 0 Refills Use daily at the same time. Prov: Skip Heaton MD 08/14/17 Albuterol Neb (Albuterol Neb) 2.5 Mg/3 Ml Neb 2.5 MG NEB Q4HR NEB Y for SHORTNESS OF BREATH, #120 NEBULE 0 Refills Prov: Skip Heaton MD 08/14/17 Montelukast (Montelukast) 10 Mg Tab 10 MG PO HS, #30 TAB Prov: Skip Heaton MD 08/14/17 Albuterol 18 GM Inh (Ventolin Hfa 18 GM Inh) 90 Mcg/Act Aer 2 PUFF INH Q4-6H Y for SHORTNESS OF BREATH, #1 INHALER 0 Refills Prov: Skip Heaton MD 08/14/17 Disposition: 01 DISCHARGE HOME Condition: Stable Jimy Domínguez Aug 14, 2017 11:32
[2017-08-14 12:11] VITALS: PULSE 89; RESP 20; O2SAT 99
== END 2017-08-14 12:22 | disposition home or self-care (01) ==
LOC: NEPD 11:06
DX: J45.41 Moderate persistent asthma with (acute) exacerbation (principal); Z76.0 Encounter for issue of repeat prescription
CPT/HCPCS: 94664; 99281

== ENCOUNTER 2017-10-01 08:51 | Emergency (ER) | payer OTHER ==
[~2017-10-01] VITALS: Ht 188 cm; Wt 86.0 kg
[~2017-10-01 08:51] MED LIST changes: +ALBU0.08 NEB; -FAMO20TA2 PO; +FLUTI220I INH; -NEBULIZER1 MI1; -PRED20 PO
[2017-10-01 08:55] VITALS: PULSE 106; RESP 24; TEMP 98.9; O2SAT 99
[2017-10-01 08:59] VITALS: O2SAT 98
[2017-10-01] MEDS ORDERED: SODIUM CHLORIDE 0.9% FLUSH 10 ML FLUSH IVF PRN (09:00)
[2017-10-01] MEDS ORDERED: methylPREDNISolone SOD SUCC 125 MG/2 ML VIAL IV PUSH ONE (09:00)
[2017-10-01] MEDS: RESP: ALBUTEROL 2.5 MG/IPRATROPIUM 0.5 MG NEB (SCH) INH (09:09)
[2017-10-01 09:10] VITALS: O2SAT 99
[2017-10-01 09:16] LABS: AUTOMATED NEUTROPHIL # 6.2 TH/MM3 (1.8-7.7); BASOPHIL % 0.4 % (0.0-2.0); EOSINOPHIL % 0.4 % (0.0-4.0); HEMATOCRIT 46.7 % (39.0-51.0); HEMOGLOBIN 15.9 GM/DL (13.0-17.0); LYMPH % 18.5 % (9.0-44.0); LYMPHOCYTE # 1.8 TH/MM3 (1.0-4.8); MEAN CELL VOLUME 88.9 FL (80.0-100.0); MEAN CORPUSCULAR HEMOGLOBIN 30.3 PG (27.0-34.0); MEAN CORPUSCULAR HGB CONC 34.1 % (32.0-36.0); MEAN PLATELET VOLUME 10.2 FL (7.0-11.0); MONO % 18.2 % (0.0-8.0); MONOCYTE # 1.8 TH/MM3 (0-0.9); NEUT % 62.5 % (16.0-70.0); PLATELET COUNT 244 TH/MM3 (150-450); RED BLOOD COUNT 5.26 MIL/MM3 (4.50-5.90); RED CELL DISTRIBUTION WIDTH 13.7 % (11.6-17.2); WHITE BLOOD COUNT 9.9 TH/MM3 (4.0-11.0)
--- NOTE | 2017-10-01 09:24 | RADRPT ---
EXAM DATE/TIME: 10/01/2017 09:09 [facility] COMPARISON: CHEST SINGLE AP, March 03, 2017, 9:33. INDICATIONS : Short of breath. MEDICAL HISTORY : asthma SURGICAL HISTORY : None. ENCOUNTER: Initial ACUITY: 1 day PAIN SCORE: 1/10 LOCATION: Bilateral chest FINDINGS: A single view of the chest demonstrates the lungs to be symmetrically aerated without evidence of mas s, infiltrate or effusion. The cardiomediastinal contours are unremarkable. Osseous structures are intact. CONCLUSION: Normal examination for a patient of this age. No significant change has occurred. Henry Plascencia MD on October 01, 2017 at 9:21 Board Certified Radiologist. This report was verified electronically.
--- NOTE | 2017-10-01 09:57 | PD ---
HPI Chief Complaint: Respiratory Distress Time Seen by Provider: 08:57 Travel History International Travel<30 days: No Contact w/Intl Traveler<30days: No Traveled to known affect area: No History of Present Illness HPI This is a 27-year-old male who has a history of asthma who presents to the emergency department with several days of increasing wheezing and shortness of breath, constant, severe, worse with exertion, improved with rest. He says he has had one day of a productive cough with yellow sputum. He has been using his home nebulizers but is not improving. He is taking prednisone at home but it is not helping. He has a long history of hospitalization for asthma. He has been hospitalized in the intensive care unit and has required BiPAP in the past. He has never been intubated. PFSH Past Medical History Asthma: Yes Anxiety: Yes Cancer: No Cardiovascular Problems: No Diminished Hearing: No Endocrine: No Genitourinary: No Immune Disorder: No Implanted Vascular Access Dvce: No Musculoskeletal: No Neurologic: No Psychiatric: No Reproductive: No Respiratory: Yes Past Surgical History Abdominal Surgery: Yes (APPENIDX, TORSO TURN) Appendectomy: Yes Other Surgery: Yes (RIGHT TESTICLE SX) Social History Alcohol Use: No Tobacco Use: No Substance Use: No Allergies-Medications (Allergen,Severity, Reaction): Coded Allergies: No Known Allergies (Unverified , 03/03/17) Reported Meds & Prescriptions Reported Meds & Active Scripts Active Flovent Hfa 12 GM Inh (Fluticasone Propionate) 220 Mcg/Act Inh 1 Puff INH BID Use daily at the same time. Albuterol Neb (Albuterol Sulfate) 2.5 Mg/3 Ml Neb 2.5 Mg NEB Q4HR NEB PRN Montelukast (Montelukast Sodium) 10 Mg Tab 10 Mg PO HS Ventolin Hfa 18 GM Inh (Albuterol Sulfate) 90 Mcg/Act Aer 2 Puff INH Q4-6H PRN Albuterol Neb (Albuterol Sulfate) 0.63 Mg/3 Ml Neb 0.63 Mg NEB Q4HR NEB PRN Symbicort Inh (Budesonide/Formoterol Fumarate) 160-4.5 Mcg/Act Aero 2 Puff INH Q12HR Review of Systems Except as stated in HPI: all other systems reviewed are Neg Physical Exam Narrative GENERAL: Uncomfortable appearing in moderate respiratory distress SKIN: Focused skin assessment warm and dry. HEAD: Atraumatic. Normocephalic. EYES: Pupils equal and round. No injection or drainage. ENT: Moist mucous membranes NECK: Trachea midline. CARDIOVASCULAR: Regular rate and rhythm. No murmur appreciated. RESPIRATORY: Tachypnea, accessory muscle use, speaking 2-3 word sentences, diffuse expiratory wheezing GASTROINTESTINAL: Abdomen soft, non-tender, nondistended. MUSCULOSKELETAL: No obvious deformities. NEUROLOGICAL: Awake and alert. No obvious cranial nerve deficits. Moving all extremities. PSYCHIATRIC: Appropriate mood and affect; insight and judgment normal. Data Data Last Documented VS Vital Signs Date Time Temp Pulse Resp B/P (MAP) Pulse Ox O2 Delivery O2 Flow Rate FiO2 10/01/17 09:10 99 Nasal Cannula 2.00 10/01/17 09:00 103 24 10/01/17 08:55 98.9 Orders Orders Complete Blood Count With Diff (10/01/17 08:57) Comprehensive Metabolic Panel (10/01/17 08:57) ^ Insert Iv (10/01/17 08:57) Chest, Single Ap (10/01/17 ) Ecg Monitoring (10/01/17 08:57) Iv Access Insert/Monitor (10/01/17 08:57) Oximetry (10/01/17 08:57) Oxygen Administration (10/01/17 08:57) Methylprednisolone So Succ Inj (Solumedr (10/01/17 09:00) Albuterol-Ipratropium Neb (Duoneb Neb) (10/01/17 09:00) Sodium Chloride 0.9% Flush (Ns Flush) (10/01/17 09:00) Labs Laboratory Tests Test 10/01/17 09:03 10/01/17 09:40 White Blood Count 9.9 TH/MM3 Red Blood Count 5.26 MIL/MM3 Hemoglobin 15.9 GM/DL Hematocrit 46.7 % Mean Corpuscular Volume 88.9 FL Mean Corpuscular Hemoglobin 30.3 PG Mean Corpuscular Hemoglobin Concent 34.1 % Red Cell Distribution Width 13.7 % Platelet Count 244 TH/MM3 Mean Platelet Volume 10.2 FL Neutrophils (%) (Auto) 62.5 % Lymphocytes (%) (Auto) 18.5 % Monocytes (%) (Auto) 18.2 % Eosinophils (%) (Auto) 0.4 % Basophils (%) (Auto) 0.4 % Neutrophils # (Auto) 6.2 TH/MM3 Lymphocytes # (Auto) 1.8 TH/MM3 Monocytes # (Auto) 1.8 TH/MM3 Eosinophils # (Auto) 0.0 TH/MM3 Basophils # (Auto) 0.0 TH/MM3 CBC Comment DIFF FINAL Differential Comment Blood Urea Nitrogen 13 MG/DL Creatinine 0.86 MG/DL Random Glucose 92 MG/DL Total Protein 7.6 GM/DL Albumin 4.4 GM/DL Calcium Level 8.7 MG/DL Alkaline Phosphatase 66 U/L Aspartate Amino Transf (AST/SGOT) 21 U/L Alanine Aminotransferase (ALT/SGPT) 40 U/L Total Bilirubin 0.5 MG/DL Sodium Level 142 MEQ/L Potassium Level 3.5 MEQ/L Chloride Level 108 MEQ/L Carbon Dioxide Level 23.8 MEQ/L Anion Gap 10 MEQ/L Estimat Glomerular Filtration Rate 131 ML/MIN MDM Medical Decision Making Medical Screen Exam Complete: Yes Emergency Medical Condition: Yes Interpretation(s) Temperature is 98.9 Tachycardic No hypoxia No leukocytosis electrolytes within normal limits cxr: no acute process Differential Diagnosis Acute asthma exacerbation, pneumonia, viral syndrome, influenza Narrative Course This is a 27-year-old male with severe asthma who presents to the emergency department in respiratory distress. He is already on prednisone at home. He was placed on a monitor and an IV was established. He was given serial bronchodilator treatments and IV steroids. He is significantly improved on reassessment. Chest x-ray is unremarkable with no evidence of pneumonia and labs are reassuring. I offered the patient admission given the severity of his asthma and the fact that he has returned despite being on prednisone. He does not want to stay in the hospital. He understands there is some risks to him going home and trying to manage this at home. Patient will be discharged on steroids Diagnosis Primary Impression: Acute asthma exacerbation Qualified Codes: J45.51 - Severe persistent asthma with (acute) exacerbation Patient Instructions: General Instructions Additional Instructions: If you develop severe shortness of breath, chest pain, or difficulty breathing return to the emergency department. Use albuterol every 4 hours for the next 2 days. Then use as needed for wheezing. Complete your course of steroids. Follow up with your primary care physician in 2-3 days if your symptoms have not improved. Med/Other Pt SpecificInfo: Prescription(s) given Scripts Prednisone (Prednisone) 20 Mg Tab 40 MG PO DAILY, #10 TAB 0 Refills Take 40 mg (2 tablets) daily for 5 days Prov: Kay German MD 10/01/17 Disposition: 01 DISCHARGE HOME Condition: Stable Kay German MD October 01, 2017 09:57
[2017-10-01 10:15] LABS: ALBUMIN 4.4 GM/DL (3.4-5.0); AST (GOT) 21 U/L (15-37); BICARBONATE 23.8 MEQ/L (21.0-32.0); BLOOD UREA NITROGEN 13 MG/DL (7-18); CALCIUM 8.7 MG/DL (8.5-10.1); CHLORIDE 108 MEQ/L (98-107); CREATININE 0.86 MG/DL (0.60-1.30); GLOMERULAR FILTRATION RATE 131 ML/MIN (>89); GLUCOSE,RANDOM 92 MG/DL (74-106); SODIUM (NA) 142 MEQ/L (136-145)
[2017-10-01 10:16] LABS: ALT (GPT) 40 U/L (12-78)
[2017-10-01 10:19] LABS: ALKALINE PHOSPHATASE 66 U/L (45-117); TOTAL BILIRUBIN ADULT 0.5 MG/DL (0.2-1.0); TOTAL PROTEIN 7.6 GM/DL (6.4-8.2)
[2017-10-01] MEDS ORDERED: PRED20 PO (11:05)
[2017-10-01 11:19] VITALS: BP 142/75
== END 2017-10-01 11:20 | disposition home or self-care (01) ==
LOC: NEPC 08:51
DX: J45.51 Severe persistent asthma with (acute) exacerbation (principal)
CPT/HCPCS: 71045; 80053; 85025; 94640; 94664; 96374; 99284; J2930